=== PATIENT | male | born 1930 | race Hispanic/Latino ===

== ENCOUNTER 2017-12-05 10:38 | Emergency (ER) | payer OTHER ==
--- OUTSIDE RECORDS SUMMARY | 2017-12-05 10:42 | XMS REPORT | Clinical Summary ---
:1930 Author Organization [facility] Address [address] [place] [address] Care Team Providers Name Role Phone Asked, No Pcp Primary Care Provider Unavailable Allergies Active Allergy Reactions Severity Noted Date Comments Ibuprofen Other (See Comments) Medium 03/31/2016 Agitation. Patient states "I lose my mind". Hydrocodone-Acetaminoph 05/12/2017 Pt's daughter en reported "he acts crazy." Current Medications Prescription Sig. Disp. Refills Start Date End Date Status pantoprazole Take 40 mg by Active (PROTONIX) 40 MG mouth daily. EC tablet tamsulosin Take 0.4 mg by Active (FLOMAX) 0.4 mg mouth nightly. capsule,extended release 24hr potassium chloride Take 10 mEq by Active (K-DUR,KLOR-CON) mouth daily. 10 MEQ CR tablet simvastatin Take 40 mg by Active (ZOCOR) 40 MG mouth daily. tablet PARoxetine (PAXIL) Take 30 mg by Active 30 MG tablet mouth daily. warfarin Take 4 mg by Active (COUMADIN) 4 MG mouth. Once tablet daily on Sunday, Sunday, Sunday, , and Sunday warfarin Take 2 mg by Active (COUMADIN) 2 MG mouth. Once tablet daily on Sunday and Sunday travoprost Administer 1 Active (TRAVATAN Z) 0.004 drop to both % eyes nightly. furosemide (LASIX) Take 40 mg by Discontinued 20 MG tablet mouth every 7 morning. furosemide (LASIX) Take 20 mg by Discontinued 20 MG tablet mouth every 7 evening. ALPRAZolam (XANAX) Take 1 mg by Discontinued 0.5 MG tablet mouth nightly as 7 needed for anxiety or sleep. benazepril Take 20 mg by Discontinued (LOTENSIN) 40 MG mouth daily as 7 tablet needed (when BP > 130/80). melatonin 10 mg Take 1 capsule 30 capsule 0 05/13/2017 capsule (10 mg total) by 7 mouth nightly as needed (insomnia) for up to 30 days. 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 Dehydration 03/31/2016 Encounters Date Type Specialty Care Team Description 05/12/2017 - Emergency General Internal [facility] Acute kidney injury ( Primary Dx); 05/13/2017 Medicine MD Marielle Labile blood pressure; Darcy Prado Hypotension, unspecified hypotension type; MD Panchito Subtherapeutic international normalized ratio (INR); Dehydration; Hypotension due to drugs after 12/04/2016 Social History Tobacco Use Types Packs/Day Years Used Date Never Smoker Alcohol Use Drinks/Week oz/Week Comments No Sex Assigned at Date Recorded Not on file Last Filed Vital Signs Vital Sign Reading Time Taken Blood Pressure 163/85 05/13/2017 11:54 AM [employer]AUGE [employer] APPRENTICE Pulse 25 05/13/2017 11:54 AM GAUGE [employer] APPRENTICE Temperature 36.3 C (97.4 F) 05/13/2017 11:54 AM GAUGE MAKER APPRENTICE Respiratory Rate 17 05/13/2017 11:54 AM GAUGE MAKER APPRENTICE Oxygen Saturation 96% 05/13/2017 11:54 AM GAUGE MAKER APPRENTICE Inhaled Oxygen Concentration - - Weight 85.5 kg (188 lb 9.6 oz) 05/12/2017 8:02 PM GAUGE MAKER APPRENTICE Height 160 cm (5' 3") 05/12/2017 8:15 PM GAUGE [employer]KER APPRENTICE Body Mass Index 33.41 05/12/2017 8:02 PM GAUGE [employer] APPRENTICE Plan of Treatment Health Maintenance Due Date Last Done Comments SHINGRIX VACCINE (#1) 1979 ZOSTER VACCINE 1989 PNEUMOCOCCAL POLYSACCHARIDE VACCINE AGE 65 AND OVER 1994 PNEUMOCOCCAL-13 1994 INFLUENZA VACCINE 01/23/2018 Implants Implanted Type Area Materials Analyst Device Identifier Expiration Date Model / Serial / Lot Pacemaker Pacemaker Results Estimated GFR (05/13/2017 4:15 AM)Only the most recent of2 resultswithin the time period is included. Component Value Ref Range GFR Non Af Amer 41 (A) mL/min/1.73 m2 GFR Af Amer 50 (A) mL/min/1.73 m2 Comment: Chronic kidney disease: <60 mL/min/1.73m2 Kidney failure: <15 mL/min/1.73m2 The estimated GFR is calculated from the IDMS-traceable Modification of Diet in Renal Disease Equation. The accuracy of the calculation is poor when the creatinine is normal. Calculated values >90 mL/min/1.73m2 are not reported. This equation has not been validated in children (<18 years), women, the elderly (>70 years), or ethnic groups other than Caucasians and Americans. Specimen Performing Laboratory Plasma specimen [facility] DEPARTMENT OF PATHOLOGY AND GENOMIC MEDICINE [address] [place] [id number] CBC with platelet and differential (05/13/2017 4:15 AM)Only the most recent of2 resultswithin the time period is included. Component Value Ref Range WBC 6.58 4.50 - 11.00 k/uL RBC 4.64 4.40 - 6.00 m/uL HGB 13.2 (L) 14.0 - 18.0 g/dL HCT 41.9 41.0 - 51.0 % MCV 90.3 82.0 - 100.0 fL MCH 28.4 27.0 - 34.0 pg MCHC 31.5 31.0 - 37.0 g/dL RDW - SD 50.4 37.0 - 55.0 fL MPV 11.9 8.8 - 13.2 fL Platelet count 151 150 - 400 k/uL Nucleated RBC 0.00 /100 WBC Neutrophils 49.7 39.0 - 69.0 % Lymphocytes 38.3 25.0 - 45.0 % Monocytes 8.5 0.0 - 10.0 % Eosinophils 2.6 0.0 - 5.0 % Basophils 0.6 0.0 - 1.0 % Immature granulocytes 0.3Comment: "Immature granulocytes" 0.0 - 1.0 % (promyelocytes, myelocytes, metamyelocytes) Specimen Performing Laboratory Blood [facility] DEPARTMENT OF PATHOLOGY AND [facility] MEDICINE [address] [place] [address] Phosphorus level (05/13/2017 4:15 AM) Component Value Ref Range Phosphorus 3.0 2.4 - 4.5 mg/dL Specimen Performing Laboratory Plasma specimen [facility] DEPARTMENT OF PATHOLOGY AND GENOMIC MEDICINE [address] [place] [address] Magnesium level (05/13/2017 4:15 AM) Component Value Ref Range Magnesium 2.2 1.6 - 2.4 mg/dL Specimen Performing Laboratory Plasma specimen [facility] DEPARTMENT PATHOLOGY [address] [address] Basic metabolic panel (05/13/2017 4:15 AM) Component Value Ref Range Sodium 144 135 - 148 mEq/L Potassium 4.3 3.5 - 5.0 mEq/L Chloride 105 98 - 112 mEq/L CO2 26 24 - 31 mEq/L Anion gap 13 7 - 15 mEq/L Comment: Starting from September , anion gap calculation no longer incorporates potassium. Please note the change. BUN 25 (H) 8 - 23 mg/dL Creatinine 1.6 (H) 0.7 - 1.2 mg/dL Glucose 91 65 - 99 mg/dL Calcium 8.4 (L) 8.8 - 10.2 mg/dL Specimen Performing Laboratory Plasma specimen [facility] DEPARTMENT PATHOLOGY [address] [address] Sodium level, urine, random (05/12/2017 9:23 PM) Component Value Ref Range Sodium, urine, random 79 mEq/L Specimen Performing Laboratory Urine [facility] DEPARTMENT PATHOLOGY [address] [address] Protein, urine, random (05/12/2017 9:23 PM) Component Value Ref Range Protein, urine random <4 mg/dL Specimen Performing Laboratory Urine [facility] DEPARTMENT OF PATHOLOGY [address] [address] Creatinine level, urine, random (05/12/2017 9:23 PM) Component Value Ref Range Creatinine, urine, random 75 mg/dL Specimen Performing Laboratory Urine [facility] DEPARTMENT PATHOLOGY [address] [address] Troponin (05/12/2017 4:30 PM)Only the most recent of2 resultswithin the time period is included. Component Value Ref Range Troponin <0.30 0.00 - 0.30 ng/mL Comment: 0.30 - 1.49 ng/mlMay indicate increased risk of acute coronary syndrome. >=1.5 ng/mlConsistent with acute myocardial infarction. The diagnostic value of a single normal or non-diagnostic result is questionable.Serial samples at 2-6 hour intervals are required to rule out acute myocardial injury. Specimen Performing Laboratory Plasma specimen [facility] DEPARTMENT OF PATHOLOGY AND GENOMIC MEDICINE [address] [place] [phone] Urinalysis screen and microscopy, with reflex to culture (05/12/2017 12:25 PM) Component Value Ref Range Specimen site Clean catch Color, UA Yellow Appearance, UA Clear Specific gravity, UA 1.015 1.001 - 1.035 pH, UA 5.0 5.0 - 8.5 Protein, UA Negative Negative Glucose, UA Negative Negative Ketones, UA Negative Negative Bilirubin, UA Negative Negative Blood, UA Negative Negative Nitrite, UA Negative Negative Urobilinogen, UA <2.0 <2.0 Leukocyte esterase, UA Negative Negative Epithelial cells, UA 1 /HPF WBC, UA <1 0 - 1 /HPF RBC, UA 1 0 - 1 /HPF Bacteria, UA Few None seen Yeast, UA None seen Yeast with pseudohyphae, UA None seen Hyaline casts, UA >20 (A) /LPF Specimen Performing Laboratory Urine [facility] DEPARTMENT OF PATHOLOGY AND GENOMIC MEDICINE [address] [place] [address] Urine culture (05/12/2017 12:25 PM) Component Value Ref Range Urine culture SEE COMMENTComment: Bacteriuria screen negative. Specimen Performing Laboratory [facility] DEPARTMENT OF PATHOLOGY AND GENOMIC MEDICINE [address] [place] [address] XR Chest 2 Vw (05/12/2017 12:13 PM) Specimen Performing Laboratory [facility] [address] [place] [address] Narrative EXAMINATION:XR CHEST 2 VW CLINICAL HISTORY:syncope COMPARISON:To previous examination 03/09/2015 IMPRESSION: Changes related midline sternotomy are noted. Transvenous pacemaker is present. Slight costophrenic angle blunting is noted involving the left side. The lungs otherwise are clear. [facility][id number] Procedure Note Interface, Radiology Results Incoming - 05/12/2017 12:18 PM GAUGE MAKER APPRENTICE EXAMINATION: XR CHEST 2 VW CLINICAL HISTORY: syncope COMPARISON: To previous examination 03/09/2015 IMPRESSION: Changes related midline sternotomy are noted. Transvenous pacemaker is present. Slight costophrenic angle blunting is noted involving the left side. The lungs otherwise are clear. [facility]-[id number] Partial thromboplastin time, activated (05/12/2017 12:03 PM) Component Value Ref Range PTT 30.4 23.0 - 36.0 sec Comment: PTT therapeutic range for unfractionated heparin is 61.0-112.0 seconds which corresponds to Anti-Xa 0.3-0.7 U/ml. Specimen Performing Laboratory Blood [facility] DEPARTMENT OF PATHOLOGY AND [facility] [address] [place] [address] Prothrombin time with INR (05/12/2017 12:03 PM) Component Value Ref Range Prothrombin time 16.7 (H) 12.0 - 15.0 sec INR 1.3 Comment: The International Normalized Ratio (INR) is a therapeutic monitoring tool for patients who are stable on oral anticoagulant therapy. An INR of 2.0-3.0 is suggested for deep vein thrombosis/pulmonary embolism. Specimen Performing Laboratory Blood [facility] DEPARTMENT OF PATHOLOGY AND [address] [address] B natriuretic peptide (05/12/2017 12:03 PM) Component Value Ref Range BNP 196 (H) 0 - 100 pg/mL Specimen Performing Laboratory Blood [facility] OF PATHOLOGY AND [address] [address] Comprehensive metabolic panel (05/12/2017 12:03 PM) Component Value Ref Range Sodium 141 135 - 148 mEq/L Potassium 4.7 3.5 - 5.0 mEq/L Chloride 103 98 - 112 mEq/L CO2 27 24 - 31 mEq/L Anion gap 11 7 - 15 mEq/L Comment: Starting from September , anion gap calculation no longer incorporates potassium. Please note the change. BUN 25 (H) 8 - 23 mg/dL Creatinine 1.9 (H) 0.7 - 1.2 mg/dL Glucose 112 (H) 65 - 99 mg/dL Calcium 8.6 (L) 8.8 - 10.2 mg/dL Protein 6.0 (L) 6.3 - 8.3 g/dL Comment: 4.6-7.0 g/dL 1 week 4.4-7.6 g/dL 7 months-1year5.1-7.3 g/dL 1-2 years5.6-7.5 g/dL >3 years6.0-8.0 g/dL 18-150 6.3-8.3 g/dL Albumin 3.4 (L) 3.5 - 5.0 g/dL A/G ratio 1.3 0.7 - 3.8 Alkaline phosphatase 54 40 - 129 U/L AST 24 10 - 50 U/L ALT 16 5 - 50 U/L Total bilirubin 0.5 0.0 - 1.2 mg/dL Specimen Performing Laboratory Plasma specimen [facility] DEPARTMENT OF PATHOLOGY AND GENOMIC MEDICINE [address] [place] [address] ECG 12 lead (05/12/2017 12:00 PM) Component Value Ref Range Ventricular rate 73 Atrial rate 73 QRSD interval 170 QT interval 446 QTC interval 491 QRS axis 1 -86 T wave axis 102 EKG impression AV sequential or dual chamber electronic pacemaker-In automated comparison with ECG of 31-MAR-2016 14:57,-No significant change was found- Specimen Performing Laboratory [facility] MUSE [address] [place] [address] after 12/04/2016 Insurance Payer Benefit Plan / Group Subscriber ID Type Phone Address [facility] O Home: [address] [phone] [place], [place] [phone]
[2017-12-05 11:30] LABS: Absolute Lymphocytes (CBC) 1.6 K/uL (0.7-4.9); Absolute Monocytes 0.4 K/uL (0.1-1.3); Absolute Neutrophil 4.7 K/uL (1.8-8.0); Basophils % 0.4 % (0-1.3); Eosinophils % 1.2 % (0-4.4); Hematocrit 44.9 % (39.6-49.0); Lymphocytes % 23.1 % (15.3-44.8); MCH 28.7 pg (27.0-35.0); MCV 89.4 fL (80-100); MPV 8.6 fL (7.6-11.3); Monocytes % 5.5 % (3.3-12.3); RBC Red Blood Cell Count 5.02 M/uL (4.33-5.43)
[2017-12-05 11:45] LABS: Potassium 3.9 mEq/L (3.6-5.0)
[2017-12-05] MEDS ORDERED: NA CHLORIDE 0.9% 500 ML ONE (11:45)
[2017-12-05 11:51] LABS: Albumin 3.6 g/dL (3.2-5.5); Bilirubin Direct 0.1 mg/dL (0-0.2); Bilirubin Total 0.8 mg/dL (0.3-1.2); Protein, Total 6.1 g/dL (6.0-8.3)
--- NOTE | 2017-12-05 13:51 | ER ---
Nurse's Notes [facility] Name: Huy Anaya Age: 87 yrs Sex: Male : 1930 Arrival Date: 12/05/2017 Time: 10:42 Bed 5 Private MD: Nabeel Barragan E Diagnosis: Weakness;fatigue;Diarrhea, unspecified Presentation: 12/05 10:53 Presenting complaint: Patient states: Nausea and diarrhea for 5 days. Transition of care: patient was not received from another setting of care. Onset of symptoms was November 30, 2017. Risk Assessment: Do you want to hurt yourself or someone else? Patient reports no desire to harm self or others. Care prior to arrival: None. 10:53 Method Of Arrival: Ambulatory aj 10:53 Acuity: MARY 4 aj 11:10 Initial Sepsis Screen: Does the patient meet any 2 criteria? No. Patient's initial hj sepsis screen is negative. Does the patient have a suspected source of infection? No. Patient's initial sepsis screen is negative. Triage Assessment: 10:55 General: Appears in no apparent distress. comfortable, Behavior is calm, cooperative, aj appropriate for age. Pain: Denies pain. Neuro: Level of Consciousness is awake, alert, obeys commands, Oriented to person, place, time, situation, Appropriate for age. Neuro: Reports dizziness. Respiratory: Airway is patent Respiratory effort is even, unlabored, Respiratory pattern is regular, symmetrical. GI: Reports diarrhea, nausea. Derm: Skin is intact, is healthy with good turgor, Skin is pink, warm \T\ dry. normal. Historical: - Allergies: 10:55 ACETAMINOPHEN; aj 10:55 hydrocodone bitartrate (bulk); aj 10:55 Iodine; aj - Home Meds: 10:56 Alprazolam Oral [Active]; aj - PMHx: 10:55 Anxiety; Depression; enlarged prostate; GERD; Hypertension; Myocardial infarction; aj - PSHx: 10:55 Heart Surgery; pacemaker; aj - Immunization history:: Adult Immunizations up to date. - Social history:: Smoking status: Patient/guardian denies using tobacco. - Ebola Screening: : Patient negative for fever greater than or equal to 101.5 degrees Fahrenheit, and additional compatible Ebola Virus Disease symptoms Patient denies exposure to infectious person Patient denies travel to an Ebola-affected area in the 21 days before illness onset No symptoms or risks identified at this time. Screenin:57 Abuse screen: Denies threats or abuse. Denies injuries from another. Nutritional hj screening: No deficits noted. Tuberculosis screening: No symptoms or risk factors identified. Fall Risk None identified. Assessment: 11:11 General: Appears in no apparent distress. uncomfortable, Behavior is calm, cooperative, hj appropriate for age. Pain: Denies pain. Neuro: Level of Consciousness is awake, alert, obeys commands, Oriented to person, place, time, situation, Appropriate for age. Cardiovascular: Capillary refill < 3 seconds Patient's skin is warm and dry. Cardiovascular: Reports nausea, Denies chest pain. Respiratory: Airway is patent Respiratory effort is even, unlabored, Respiratory pattern is regular, symmetrical. GI: Reports nausea, vomiting. GI: Abdomen is round Bowel sounds present X 4 quads. Abd is soft and non tender. : No signs and/or symptoms were reported regarding the genitourinary system. EENT: No signs and/or symptoms were reported regarding the EENT system. Derm: No signs and/or symptoms reported regarding the dermatologic system. Musculoskeletal: No signs and/or symptoms reported regarding the musculoskeletal system. 12:12 Reassessment: Patient and/or family updated on plan of care and expected duration. Pain hj level reassessed. Patient is alert, oriented x 3, equal unlabored respirations, skin warm/dry/pink. daughter in law in room; Patient states feeling better. 13:19 Reassessment: Patient and/or family updated on plan of care and expected duration. Pain hj level reassessed. Patient is alert, oriented x 3, equal unlabored respirations, skin warm/dry/pink. Patient states feeling better. Patient states symptoms have improved. Vital Signs: 10:55 BP 124 / 83; Pulse 83; Resp 16; Temp 98.1; Pulse Ox 95% on R/A; Weight 88.45 kg; Height aj 5 ft. 2 in. (157.48 cm); 11:45 BP 123 / 78; Pulse 70; Resp 18; Pulse Ox 100% on R/A; hj 12:12 BP 124 / 80; Pulse 72; Resp 18; Pulse Ox 100% on R/A; hj 13:20 BP 137 / 84; Pulse 70; Resp 18; Pulse Ox 100% on R/A; hj 14:02 BP 130 / 75; Pulse 71; Resp 18; Pulse Ox 100% on R/A; hj 10:55 Body Mass Index 35.67 (88.45 kg, 157.48 cm) ED Course: 10:42 Patient arrived in ED. jb7 10:42 Nabeel Barragan MD is Private Physician. jb7 10:54 Triage completed. aj 10:56 César Fajardo RN is Primary Nurse. hj 10:56 Arm band placed on right wrist. Patient placed in an exam room. aj 10:57 Heriberto Yates MD is Attending Physician. kdr 11:10 Patient has correct armband on for positive identification. Placed in gown. Bed in low hj position. Call light in reach. Side rails up X 1. Adult w/ patient. 11:10 Initial lab(s) drawn, by me. Inserted saline lock: 22 gauge in left antecubital area, hj using aseptic technique. Blood collected. 11:27 Initial lab(s) drawn, by ED staff, sent to lab. 3 13:49 Nabeel Barragan MD is Referral Physician. kdr 14:01 No provider procedures requiring assistance completed. IV discontinued, intact, hj bleeding controlled, No redness/swelling at site. Pressure dressing applied. Administered Medications: 11:49 Drug: NS 0.9% 500 ml Route: IV; Rate: bolus; Site: left antecubital; hb 12:19 Follow up: IV Status: Completed infusion; IV Intake: 1000ml hj Intake: 12:19 IV: 1000ml; Total: 1000ml. Outcome: 13:50 Discharge ordered by . kdr 14:01 Discharged to home ambulatory, with family. hj 14:01 Condition: stable 14:01 Discharge instructions given to patient, family, Instructed on discharge instructions, follow up and referral plans. medication usage, Demonstrated understanding of instructions, follow-up care, medications, Prescriptions given X 2. 14:03 Patient left the ED. Signatures: Brandi Manriquez RN RN aj Rittger, Kevin, MD MD kdr Joaquin, Henry, RN RN hj Baxter, Heather, RN RN Nitish Monzon jb7 Haley Ruiz 3
--- NOTE | 2017-12-05 13:51 | EDPHYS ---
Physician Documentation [facility] Name: Huy Anaya Age: 87 yrs Sex: Male : 1930 Arrival Date: 12/05/2017 Time: 10:42 Bed 5 Private MD: Nabeel Barragan E ED Physician Heriberto Yates HPI: 12/05 15:21 This 87 yrs old Male presents to ER via Ambulatory with complaints of kdr Nausea/Vomiting/Diarrhea. 15:21 The patient presents to the emergency department with nausea, that is mild, vomiting, kdr that is intermittent, diarrhea, that is intermittent. Onset: The symptoms/episode began/occurred gradually, 4 day(s) ago. Possible causes: unknown. The symptoms are aggravated by nothing. The symptoms are alleviated by nothing. Associated signs and symptoms: The patient has no apparent associated signs or symptoms. Severity of symptoms: At their worst the symptoms were mild in the emergency department the symptoms have improved mildly. The patient has not experienced similar symptoms in the past. The patient has not recently seen a physician. Historical: - Allergies: 10:55 ACETAMINOPHEN; aj 10:55 hydrocodone bitartrate (bulk); aj 10:55 Iodine; aj - Home Meds: 10:56 Alprazolam Oral [Active]; aj - PMHx: 10:55 Anxiety; Depression; enlarged prostate; GERD; Hypertension; Myocardial infarction; aj - PSHx: 10:55 Heart Surgery; pacemaker; aj - Immunization history:: Adult Immunizations up to date. - Social history:: Smoking status: Patient/guardian denies using tobacco. - Ebola Screening: : Patient negative for fever greater than or equal to 101.5 degrees Fahrenheit, and additional compatible Ebola Virus Disease symptoms Patient denies exposure to infectious person Patient denies travel to an Ebola-affected area in the 21 days before illness onset No symptoms or risks identified at this time. ROS: 15:21 Constitutional: Negative for fever, chills, and weight loss, Eyes: Negative for injury, kdr pain, redness, and discharge, Neck: Negative for injury, pain, and swelling, Cardiovascular: Negative for chest pain, palpitations, and edema, Respiratory: Negative for shortness of breath, cough, wheezing, and pleuritic chest pain, Back: Negative for injury and pain, : Negative for injury, bleeding, discharge, and swelling, MS/Extremity: Negative for injury and deformity, Skin: Negative for injury, rash, and discoloration, Neuro: Negative for headache, weakness, numbness, tingling, and seizure activity. Psych: Negative for depression, anxiety, suicide ideation, homicidal ideation, and hallucinations, Allergy/Immunology: Negative for hives, rash, and allergies, Endocrine: Negative for neck swelling, polydipsia, polyuria, polyphagia, and marked weight changes, Hematologic/Lymphatic: Negative for swollen nodes, abnormal bleeding, and unusual bruising. 15:21 Abdomen/GI: Positive for nausea, vomiting, and diarrhea, Negative for constipation, abdominal distension, anorexia, dysphagia, hematemesis, black/tarry stool, rectal pain, rectal bleeding. Exam: 15:21 Constitutional: This is a well developed, well nourished patient who is awake, alert, kdr and in no acute distress. Head/Face: Normocephalic, atraumatic. Eyes: Pupils equal round and reactive to light, extra-ocular motions intact. Lids and lashes normal. Conjunctiva and sclera are non-icteric and not injected. Cornea within normal limits. Periorbital areas with no swelling, redness, or edema. Neck: Trachea midline, no thyromegaly or masses palpated, and no cervical lymphadenopathy. Supple, full range of motion without nuchal rigidity, or vertebral point tenderness. No Meningismus. Chest/axilla: Normal chest wall appearance and motion. Nontender with no deformity. No lesions are appreciated. Cardiovascular: Regular rate and rhythm with a normal S1 and S2. No gallops, murmurs, or rubs. Normal PMI, no JVD. No pulse deficits. Respiratory: Lungs have equal breath sounds bilaterally, clear to auscultation and percussion. No rales, rhonchi or wheezes noted. No increased work of breathing, no retractions or nasal flaring. Back: No spinal tenderness. No costovertebral tenderness. Full range of motion. Skin: Warm, dry with normal turgor. Normal color with no rashes, no lesions, and no evidence of cellulitis. MS/ Extremity: Pulses equal, no cyanosis. Neurovascular intact. Full, normal range of motion. Neuro: Awake and alert, GCS 15, oriented to person, place, time, and situation. Cranial nerves II-XII grossly intact. Motor strength 5/5 in all extremities. Sensory grossly intact. Cerebellar exam normal. Normal gait. Psych: Awake, alert, with orientation to person, place and time. Behavior, mood, and affect are within normal limits. 15:21 Abdomen/GI: Soft, non-tender, with normal bowel sounds. No distension or tympany. No guarding or rebound. No evidence of tenderness throughout. Vital Signs: 10:55 BP 124 / 83; Pulse 83; Resp 16; Temp 98.1; Pulse Ox 95% on R/A; Weight 88.45 kg; Height aj 5 ft. 2 in. (157.48 cm); 11:45 BP 123 / 78; Pulse 70; Resp 18; Pulse Ox 100% on R/A; hj 12:12 BP 124 / 80; Pulse 72; Resp 18; Pulse Ox 100% on R/A; hj 13:20 BP 137 / 84; Pulse 70; Resp 18; Pulse Ox 100% on R/A; hj 14:02 BP 130 / 75; Pulse 71; Resp 18; Pulse Ox 100% on R/A; hj 10:55 Body Mass Index 35.67 (88.45 kg, 157.48 cm) aj MDM: 13:50 Patient medically screened. kdr 15:21 Data reviewed: vital signs, nurses notes. Counseling: I had a detailed discussion with kdr the patient and/or guardian regarding: the historical points, exam findings, and any diagnostic results supporting the discharge/admit diagnosis, lab results, radiology results, the need for outpatient follow up. 12/05 11:19 Order name: Amylase, Serum; Complete Time: 12:17 12/05 11:19 Order name: Basic Metabolic Panel; Complete Time: 12:17 12/05 11:19 Order name: CBC with Diff; Complete Time: 11:34 12/05 11:19 Order name: Creatinine for Radiology; Complete Time: 12:17 12/05 11:19 Order name: Hepatic Function; Complete Time: 12:17 12/05 11:19 Order name: Lipase; Complete Time: 12:17 12/05 11:19 Order name: IV Saline Lock; Complete Time: 11:23 12/05 11:19 Order name: Labs collected and sent; Complete Time: 11:23 Administered Medications: 11:49 Drug: NS 0.9% 500 ml Route: IV; Rate: bolus; Site: left antecubital; hb 12:19 Follow up: IV Status: Completed infusion; IV Intake: 1000ml hj Disposition: 12/05/17 13:50 Discharged to Home. Impression: Weakness, fatigue, Diarrhea, unspecified. - Condition is Stable. - Discharge Instructions: Fatigue, Diarrhea, [id number], Weakness, [id number]. - Prescriptions for Zofran 4 mg Oral Tablet - take 1 tablet by ORAL route every 12 hours As needed; 6 tablet. Tramadol 50 mg Oral Tablet - take 1 tablet by ORAL route every 8 hours as needed; 12 tablet. - Medication Reconciliation Form, Thank You Letter, Antibiotic Education, Prescription Opioid Use form. - Follow up: Nabeel Barragan MD; When: 1 - 2 days; Reason: If symptoms return, Further diagnostic work-up, Recheck today's complaints, Continuance of care, Re-evaluation by your physician. - Problem is new. - Symptoms have improved. Signatures: Dispatcher [employer] EDPR Brandi Manriquez RN RN Heriberto Hidalgo MD MD [facility] César Fajardo RN RN Makayla Phillips RN RN Corrections: (The following items were deleted from the chart) 14:03 13:50 12/05/2017 13:50 Discharged to Home. Impression: Weakness; fatigue; Diarrhea, hj unspecified. Condition is Stable. Forms are Medication Reconciliation Form, Thank You Letter, Antibiotic Education, Prescription Opioid Use. Follow up: Nabeel Barragan; When: 1 - 2 days; Reason: If symptoms return, Further diagnostic work-up, Recheck today's complaints, Continuance of care, Re-evaluation by your physician. Problem is new. Symptoms have improved. kdr
[2017-12-05 14:13] VITALS: TEMP 98.1
[2017-12-05 14:14] VITALS: O2SAT 100
[2017-12-05 14:17] VITALS: BP 130/75
== END 2017-12-05 14:03 | disposition home or self-care (01) ==
LOC: ER 10:38
DX: R11.2 Nausea with vomiting, unspecified (principal); R19.7 Diarrhea, unspecified; R53.83 Other fatigue; F32.9 Major depressive disorder, single episode, unspecified; N40.0 Benign prostatic hyperplasia without lower urinary tract symptoms; K21.9 Gastro-esophageal reflux disease without esophagitis; I10 Essential (primary) hypertension; I25.2 Old myocardial infarction; Z95.0 Presence of cardiac pacemaker
CPT/HCPCS: 36415; 80048; 80076; 82150; 83690; 85025; 99284

== ENCOUNTER 2018-01-16 11:55 | Emergency (ER) | payer OTHER ==
--- OUTSIDE RECORDS SUMMARY | 2018-01-16 11:57 | XMS REPORT | Clinical Summary ---
:1930 Author Organization [facility] Address [address] [place] [address] Care Team Providers Name Role Phone Asked, [...] Description 05/12/2017 - Emergency General Internal [facility] Acute kidney injury ( Primary Dx); 05/13/2017 Medicine MD Marielle Labile blood pressure; Darcy Prado Hypotension, unspecified hypotension type; MD Panchito Subtherapeutic international normalized ratio (INR); Dehydration; Hypotension due to drugs after 01/15/2017 Social History Tobacco Use Types Packs/Day Years Used Date Never Smoker Alcohol Use Drinks/Week oz/Week Comments No Sex Assigned at Date Recorded Not on file Last Filed Vital Signs Vital Sign Reading Time Taken Blood Pressure 163/85 05/13/2017 11:54 AM [facility] Pulse 25 05/13/2017 11:54 AM [facility] Temperature 36.3 C (97.4 F) 05/13/2017 11:54 AM [facility] Respiratory Rate 17 05/13/2017 11:54 AM [facility] Oxygen Saturation 96% 05/13/2017 11:54 AM [facility] Inhaled Oxygen Concentration - - Weight 85.5 kg (188 lb 9.6 oz) 05/12/2017 8:02 PM [facility] Height 160 cm (5' 3") 05/12/2017 8:15 PM [facility] Body Mass Index 33.41 05/12/2017 8:02 PM [facility] Plan of Treatment Health Maintenance Due Date Last Done Comments SHINGRIX VACCINE (#1) 1979 ZOSTER VACCINE 1989 PNEUMOCOCCAL POLYSACCHARIDE VACCINE AGE 65 AND OVER 1994 PNEUMOCOCCAL-13 1994 INFLUENZA VACCINE 01/23/2018 Implants Implanted Type Area Histology Assistant Device Identifier Expiration Date Model / Serial / Lot Pacemaker Pacemaker Procedures Procedure Name Priority Date/Time Associated Comments Diagnosis ESTIMATED GFR Routine 05/13/2017 4:15 Results for this AM [facility] procedure are in the results section. PHOSPHORUS LEVEL Routine 05/13/2017 4:15 Results for this AM [facility] procedure are in the results section. MAGNESIUM LEVEL Routine 05/13/2017 4:15 Results for this AM [facility] procedure are in the results section. HC COMPLETE BLD COUNT Routine 05/13/2017 4:15 Results for this W/AUTO DIFF AM [facility] procedure are in the results section. BASIC METABOLIC PANEL Routine 05/13/2017 4:15 Results for this AM [facility] procedure are in the results section. SODIUM LEVEL, URINE, Routine 05/12/2017 9:23 Results for this RANDOM PM [facility] procedure are in the results section. CREATININE LEVEL, Routine 05/12/2017 9:23 Results for this URINE, RANDOM PM [facility] procedure are in the results section. PROTEIN, URINE, RANDOM Routine 05/12/2017 9:23 Results for this PM [facility] procedure are in the results section. TROPONIN Timed 05/12/2017 4:30 Results for this PM [facility] procedure are in the results section. URINALYSIS SCREEN AND Routine 05/12/2017 12:25 Results for this MICROSCOPY, WITH REFLEX PM [facility] procedure are in TO CULTURE the results section. URINE CULTURE Routine 05/12/2017 12:25 Results for this PM [facility] procedure are in the results section. XR CHEST 2 VW STAT 05/12/2017 12:13 Results for this PM [facility] procedure are in the results section. ESTIMATED GFR STAT 05/12/2017 12:03 Results for this PM [facility] procedure are in the results section. B NATRIURETIC PEPTIDE STAT 05/12/2017 12:03 Results for this PM [facility] procedure are in the results section. TROPONIN STAT 05/12/2017 12:03 Results for this PM [facility] procedure are in the results section. COMPREHENSIVE METABOLIC STAT 05/12/2017 12:03 Results for this PANEL PM [facility] procedure are in the results section. PARTIAL THROMBOPLASTIN STAT 05/12/2017 12:03 Results for this TIME (PTT) PM [facility] procedure are in the results section. PROTHROMBIN TIME WITH STAT 05/12/2017 12:03 Results for this INR PM [facility] procedure are in the results section. HC COMPLETE BLD COUNT STAT 05/12/2017 12:03 Results for this W/AUTO DIFF PM [facility] procedure are in the results section. ECG 12-LEAD STAT 05/12/2017 12:00 Results for this PM [facility] procedure are in the results section. after 01/15/2017 Results Estimated GFR (05/13/2017 4:15 AM)Only the most recent of2 resultswithin the time period is included. GFR Non Af Amer 41 (A) mL/min/1.73 m2 [facility] DEPARTMENT OF PATHOLOGY AND GENOMIC MEDICINE GFR Af Amer 50 (A) mL/min/1.73 m2 [facility] DEPARTMENT OF Comment: PATHOLOGY AND GENOMIC Chronic kidney disease: <60 mL/min/1.73m2 MEDICINE Kidney failure: <15 mL/min/1.73m2 The estimated GFR is calculated from the IDMS-traceable Modification of Diet in Renal Disease Equation. The accuracy of the calculation is poor when the creatinine is normal. Calculated values >90 mL/min/1.73m2 are not reported. This equation has not been validated in children (<18 years), women, the elderly (>70 years), or ethnic groups other than Caucasians and Americans. Specimen Plasma specimen Performing Organization Address City/State/Zipcode Phone Number [facility] DEPARTMENT OF PATHOLOGY AND [address] [place] [address] Interleukin Genetics [facility] CBC with platelet and differential (05/13/2017 4:15 AM)Only the most recent of2 resultswithin the time period is included. WBC 6.58 4.50 - 11.00 k/uL [facility] DEPARTMENT OF PATHOLOGY AND GENOMIC MEDICINE RBC 4.64 4.40 - 6.00 m/uL [facility] DEPARTMENT OF PATHOLOGY AND GENOMIC MEDICINE HGB 13.2 (L) 14.0 - 18.0 g/dL [facility] DEPARTMENT OF PATHOLOGY AND GENOMIC MEDICINE HCT 41.9 41.0 - 51.0 % [facility] DEPARTMENT OF PATHOLOGY AND GENOMIC MEDICINE MCV 90.3 82.0 - 100.0 fL [facility] DEPARTMENT OF PATHOLOGY AND GENOMIC MEDICINE MCH 28.4 27.0 - 34.0 pg [facility] DEPARTMENT OF PATHOLOGY AND GENOMIC MEDICINE MCHC 31.5 31.0 - 37.0 g/dL [facility] DEPARTMENT OF PATHOLOGY AND GENOMIC MEDICINE RDW - SD 50.4 37.0 - 55.0 fL [facility] DEPARTMENT OF PATHOLOGY AND GENOMIC MEDICINE MPV 11.9 8.8 - 13.2 fL [facility] DEPARTMENT OF PATHOLOGY AND GENOMIC MEDICINE Platelet count 151 150 - 400 k/uL [facility] DEPARTMENT OF PATHOLOGY AND GENOMIC MEDICINE Nucleated RBC 0.00 /100 WBC [facility] DEPARTMENT OF PATHOLOGY AND GENOMIC MEDICINE Neutrophils 49.7 39.0 - 69.0 % [facility] DEPARTMENT OF PATHOLOGY AND GENOMIC MEDICINE Lymphocytes 38.3 25.0 - 45.0 % [facility] DEPARTMENT OF PATHOLOGY AND GENOMIC MEDICINE Monocytes 8.5 0.0 - 10.0 % [facility] DEPARTMENT OF PATHOLOGY AND GENOMIC MEDICINE Eosinophils 2.6 0.0 - 5.0 % [facility] DEPARTMENT OF PATHOLOGY AND GENOMIC MEDICINE Basophils 0.6 0.0 - 1.0 % [facility] DEPARTMENT OF PATHOLOGY AND GENOMIC MEDICINE Immature granulocytes 0.3Comment: 0.0 - 1.0 % [facility] DEPARTMENT OF "Immature PATHOLOGY AND GENOMIC granulocytes" MEDICINE (promyelocytes, myelocytes, metamyelocytes) Specimen Blood Performing Organization Address City/[facility] Phone Number [facility] DEPARTMENT OF PATHOLOGY AND [address] [place] [address] MEDICINE Phosphorus level (05/13/2017 4:15 AM) Phosphorus 3.0 2.4 - 4.5 mg/dL [facility] DEPARTMENT OF PATHOLOGY AND GENOMIC MEDICINE Specimen Plasma specimen Performing Organization Address [facility] Phone Number [facility] DEPARTMENT OF PATHOLOGY AND [address] [place] [address] MEDICINE Magnesium level (05/13/2017 4:15 AM) Magnesium 2.2 1.6 - 2.4 mg/dL [facility] DEPARTMENT OF PATHOLOGY AND GENOMIC MEDICINE Specimen Plasma specimen Performing Organization Address [facility] Phone Number [facility] DEPARTMENT OF PATHOLOGY AND [address] [place] [address] Basic metabolic panel (05/13/2017 4:15 AM) Sodium 144 135 - 148 mEq/L [facility] DEPARTMENT OF PATHOLOGY AND GENOMIC MEDICINE Potassium 4.3 3.5 - 5.0 mEq/L [facility] DEPARTMENT OF PATHOLOGY AND GENOMIC MEDICINE Chloride 105 98 - 112 mEq/L [facility] DEPARTMENT OF PATHOLOGY AND GENOMIC MEDICINE CO2 26 24 - 31 mEq/L [facility] DEPARTMENT OF PATHOLOGY AND GENOMIC MEDICINE Anion gap 13 7 - 15 mEq/L [facility] DEPARTMENT OF PATHOLOGY Comment: AND GENOMIC [facility] Starting from September , anion gap calculation no longer incorporates potassium. Please note the change. BUN 25 (H) 8 - 23 mg/dL [facility] DEPARTMENT OF PATHOLOGY AND GENOMIC MEDICINE Creatinine 1.6 (H) 0.7 - 1.2 mg/dL [facility] DEPARTMENT OF PATHOLOGY AND GENOMIC MEDICINE Glucose 91 65 - 99 mg/dL [facility] DEPARTMENT OF PATHOLOGY AND GENOMIC MEDICINE Calcium 8.4 (L) 8.8 - 10.2 mg/dL [facility] DEPARTMENT OF PATHOLOGY AND GENOMIC MEDICINE Specimen Plasma specimen Performing Organization Address City/[facility] Phone Number [facility] DEPARTMENT OF PATHOLOGY AND [address] [place] [address] GENOMIC [facility] Sodium level, urine, random (05/12/2017 9:23 PM) Sodium, urine, random 79 mEq/L [facility] DEPARTMENT OF PATHOLOGY AND GENOMIC MEDICINE Specimen Urine Performing Organization Address [facility] Phone Number [facility] DEPARTMENT OF PATHOLOGY AND [address] [place] [address] GENOMIC MEDICINE Protein, urine, random (05/12/2017 9:23 PM) Protein, urine random <4 mg/dL [facility] DEPARTMENT OF PATHOLOGY AND GENOMIC MEDICINE Specimen Urine Performing Organization Address [facility] Phone Number [facility] DEPARTMENT OF PATHOLOGY AND [address] [place] [address] Creatinine level, urine, random (05/12/2017 9:23 PM) Creatinine, urine, random 75 mg/dL [facility] DEPARTMENT OF PATHOLOGY AND GENOMIC MEDICINE Specimen Urine Performing Organization Address [facility] Phone Number [facility] DEPARTMENT OF PATHOLOGY AND [address] [place] [address] MEDICINE Troponin (05/12/2017 4:30 PM)Only the most recent of2 resultswithin the time period is included. Troponin <0.30 0.00 - 0.30 ng/mL [facility] DEPARTMENT OF PATHOLOGY Comment: AND GENOMIC MEDICINE 0.30 - 1.49 ng/mlMay indicate increased risk of acute coronary syndrome. >=1.5 ng/mlConsistent with acute myocardial infarction. The diagnostic value of a single normal or non-diagnostic result is questionable.Serial samples at 2-6 hour intervals are required to rule out acute myocardial injury. Specimen Plasma specimen Performing Organization Address [facility] Phone Number [facility] DEPARTMENT OF PATHOLOGY AND [address] [place] [address] GENOMIC MEDICINE Urinalysis screen and microscopy, with reflex to culture (05/12/2017 12:25 PM) Specimen site Clean catch [facility] DEPARTMENT OF PATHOLOGY AND GENOMIC MEDICINE Color, UA Yellow [facility] DEPARTMENT OF PATHOLOGY AND GENOMIC MEDICINE Appearance, UA Clear [facility] DEPARTMENT OF PATHOLOGY AND GENOMIC MEDICINE Specific gravity, UA 1.015 1.001 - 1.035 [facility] DEPARTMENT OF PATHOLOGY AND GENOMIC MEDICINE pH, UA 5.0 5.0 - 8.5 [facility] DEPARTMENT OF PATHOLOGY AND GENOMIC MEDICINE Protein, UA Negative Negative [facility] DEPARTMENT OF PATHOLOGY AND GENOMIC MEDICINE Glucose, UA Negative Negative [facility] DEPARTMENT OF PATHOLOGY AND GENOMIC MEDICINE Ketones, UA Negative Negative [facility] DEPARTMENT OF PATHOLOGY AND GENOMIC MEDICINE Bilirubin, UA Negative Negative [facility] DEPARTMENT OF PATHOLOGY AND GENOMIC MEDICINE Blood, UA Negative Negative [facility] DEPARTMENT OF PATHOLOGY AND GENOMIC MEDICINE Nitrite, UA Negative Negative [facility] DEPARTMENT OF PATHOLOGY AND GENOMIC MEDICINE Urobilinogen, UA <2.0 <2.0 [facility] DEPARTMENT OF PATHOLOGY AND GENOMIC MEDICINE Leukocyte esterase, UA Negative Negative [facility] DEPARTMENT OF PATHOLOGY AND GENOMIC MEDICINE Epithelial cells, UA 1 /HPF [facility] DEPARTMENT OF PATHOLOGY AND GENOMIC MEDICINE WBC, UA <1 0 - 1 /HPF [facility] DEPARTMENT OF PATHOLOGY AND GENOMIC MEDICINE RBC, UA 1 0 - 1 /HPF [facility] DEPARTMENT OF PATHOLOGY AND GENOMIC MEDICINE Bacteria, UA Few None seen [facility] DEPARTMENT OF PATHOLOGY AND GENOMIC MEDICINE Yeast, UA None seen [facility] DEPARTMENT OF PATHOLOGY AND GENOMIC MEDICINE Yeast with pseudohyphae, UA None seen [facility] DEPARTMENT OF PATHOLOGY AND GENOMIC MEDICINE Hyaline casts, UA >20 (A) /LPF [facility] DEPARTMENT OF PATHOLOGY AND GENOMIC MEDICINE Specimen Urine Performing Organization Address City/[facility]/Zipcode Phone Number [facility] DEPARTMENT OF PATHOLOGY AND [address] [place] [address] [facility] Urine culture (05/12/2017 12:25 PM) Urine culture SEE COMMENTComment: Bacteriuria [facility] DEPARTMENT OF PATHOLOGY screen negative. AND GENOMIC MEDICINE Performing Organization Address City/[facility]/Zipcode Phone Number [facility] DEPARTMENT OF PATHOLOGY AND [address] [place], [place] [id number] [facility] XR Chest 2 Vw (05/12/2017 12:13 PM) Narrative Performed At EXAMINATION:XR CHEST 2 VW RADIANT CLINICAL HISTORY:syncope COMPARISON:To previous examination 03/09/2015 IMPRESSION: Changes related midline sternotomy are noted. Transvenous pacemaker is present. Slight costophrenic angle blunting is noted involving the left side. The lungs otherwise are clear. [id number] Procedure Note Hm Interface, Radiology Results Incoming - 05/12/2017 12:18 PM [facility] EXAMINATION: XR CHEST 2 VW CLINICAL HISTORY: syncope COMPARISON: To previous examination 03/09/2015 IMPRESSION: Changes related midline sternotomy are noted. Transvenous pacemaker is present. Slight costophrenic angle blunting is noted involving the left side. The lungs otherwise are clear. [id number] Performing Organization Address [facility] Phone Number [facility] [address] [place] [phone] Partial thromboplastin time, activated (05/12/2017 12:03 PM) PTT 30.4 23.0 - 36.0 sec [facility] DEPARTMENT OF PATHOLOGY Comment: AND [facility] PTT therapeutic range for unfractionated heparin is 61.0-112.0 seconds which corresponds to Anti-Xa 0.3-0.7 U/ml. Specimen Blood Performing Organization Address [facility] Phone Number [facility] DEPARTMENT OF PATHOLOGY AND [address] [place] [address] Prothrombin time with INR (05/12/2017 12:03 PM) Prothrombin time 16.7 (H) 12.0 - 15.0 sec [facility] DEPARTMENT OF PATHOLOGY AND GENOMIC MEDICINE INR 1.3 [facility] DEPARTMENT OF Comment: PATHOLOGY AND GENOMIC The International Normalized Ratio (INR) is a therapeutic MEDICINE monitoring tool for patients who are stable on oral anticoagulant therapy. An INR of 2.0-3.0 is suggested for deep vein thrombosis/pulmonary embolism. Specimen Blood Performing Organization Address [facility] Phone Number [facility] DEPARTMENT OF PATHOLOGY AND [address] [place], [place] [id number] [facility] B natriuretic peptide (05/12/2017 12:03 PM) BNP 196 (H) 0 - 100 pg/mL [facility] DEPARTMENT OF PATHOLOGY AND GENOMIC MEDICINE Specimen Blood Performing Organization Address [facility] Phone Number [facility] DEPARTMENT OF PATHOLOGY AND [address] [place] [address] [facility] Comprehensive metabolic panel (05/12/2017 12:03 PM) Sodium 141 135 - 148 mEq/L [facility] DEPARTMENT OF PATHOLOGY AND GENOMIC MEDICINE Potassium 4.7 3.5 - 5.0 mEq/L [facility] DEPARTMENT OF PATHOLOGY AND GENOMIC MEDICINE Chloride 103 98 - 112 mEq/L [facility] DEPARTMENT OF PATHOLOGY AND GENOMIC MEDICINE CO2 27 24 - 31 mEq/L [facility] DEPARTMENT OF PATHOLOGY AND GENOMIC MEDICINE Anion gap 11 7 - 15 mEq/L [facility] DEPARTMENT OF Comment: PATHOLOGY AND GENOMIC Starting from September , anion gap calculation MEDICINE no longer incorporates potassium. Please note the change. BUN 25 (H) 8 - 23 mg/dL [facility] DEPARTMENT OF PATHOLOGY AND GENOMIC MEDICINE Creatinine 1.9 (H) 0.7 - 1.2 mg/dL [facility] DEPARTMENT OF PATHOLOGY AND GENOMIC MEDICINE Glucose 112 (H) 65 - 99 mg/dL [facility] DEPARTMENT OF PATHOLOGY AND GENOMIC MEDICINE Calcium 8.6 (L) 8.8 - 10.2 mg/dL [facility] DEPARTMENT OF PATHOLOGY AND GENOMIC MEDICINE Protein 6.0 (L) 6.3 - 8.3 g/dL [facility] DEPARTMENT OF Comment: PATHOLOGY AND GENOMIC [place] 4.6-7.0 g/dL MEDICINE 1 week 4.4-7.6 g/dL 7 months-1year5.1-7.3 g/dL 1-2 years5.6-7.5 g/dL >3 years6.0-8.0 g/dL 18-150 6.3-8.3 g/dL Albumin 3.4 (L) 3.5 - 5.0 g/dL [facility] DEPARTMENT OF PATHOLOGY AND GENOMIC MEDICINE A/G ratio 1.3 0.7 - 3.8 [facility] DEPARTMENT OF PATHOLOGY AND GENOMIC MEDICINE Alkaline phosphatase 54 40 - 129 U/L [facility] DEPARTMENT OF PATHOLOGY AND GENOMIC MEDICINE AST 24 10 - 50 U/L [facility] DEPARTMENT OF PATHOLOGY AND GENOMIC MEDICINE ALT 16 5 - 50 U/L [facility] DEPARTMENT OF PATHOLOGY AND GENOMIC MEDICINE Total bilirubin 0.5 0.0 - 1.2 mg/dL [facility] DEPARTMENT OF PATHOLOGY AND GENOMIC MEDICINE Specimen Plasma specimen Performing Organization Address City/State/[facility] Phone Number [facility] DEPARTMENT OF PATHOLOGY AND [address] [place] [address] [facility] ECG 12 lead (05/12/2017 12:00 PM) Ventricular rate 73 [facility] Atrial rate 73 [facility] QRSD interval 170 [facility] QT interval 446 [facility] QTC interval 491 [facility] QRS axis 1 -86 [facility] T wave axis 102 [facility] EKG impression AV sequential or dual chamber electronic [facility] pacemaker-In automated comparison with ECG of 31-MAR-2016 14:57,-No significant change was found- Performing Organization Address City/State/Zipcode Phone Number [facility] MUSE [address] [place] [address] after 01/15/2017 Insurance Payer Benefit Plan / Group Subscriber ID Type Phone Address [facility] xxxxxxxxx HMO [phone] [place] [id number]
[2018-01-16 12:37] LABS: Absolute Lymphocytes (CBC) 2.1 K/uL (0.7-4.9); Absolute Monocytes 0.5 K/uL (0.1-1.3); Absolute Neutrophil 4.2 K/uL (1.8-8.0); Basophils % 0.7 % (0-1.3); Eosinophils % 1.7 % (0-4.4); MCH 29.6 pg (27.0-35.0); MCV 88.1 fL (80-100); MPV 9.7 fL (7.6-11.3); Monocytes % 7.5 % (3.3-12.3); RBC Red Blood Cell Count 5.22 M/uL (4.33-5.43)
--- NOTE | 2018-01-16 12:57 | RAD REPORT ---
EXAM DESCRIPTION: CT - Head Brain Wo Cont - 01/16/2018 12:51 pm CLINICAL HISTORY: DIZZINESS Headache, drowsiness COMPARISON: Head Brain Wo Cont dated 01/07/2017; Head Brain Wo Cont dated 10/15/2016 TECHNIQUE: All CT scans are performed using dose optimization technique as appropriate and may inclu de automated exposure control or mA/KV adjustment according to patient size. FINDINGS: No intracranial hemorrhage, hydrocephalus or extra-axial fluid collection.Moderate general ized brain atrophy is present with mild periventricular and deep white matter chronic microvascular i schemic changes.No areas of brain edema or evidence of midline shift. The paranasal sinuses and mastoids are clear. The calvarium is intact. Vertebral arteries are atheros clerotic. IMPRESSION: No acute intracranial abnormality.
[2018-01-16] MEDS ORDERED: NA CHLORIDE 0.9% 500 ML ONE (13:01)
[2018-01-16 13:02] LABS: Albumin 3.6 g/dL (3.4-5.0); Bilirubin Direct 0.2 mg/dL (0-0.2); Bilirubin Total 0.5 mg/dL (0.2-1.0); Magnesium 2.2 mg/dL (1.8-2.4); Potassium 3.2 mmol/L (3.5-5.1); Protein, Total 6.7 g/dL (6.4-8.2)
--- NOTE | 2018-01-16 14:16 | EKG ---
Test Date: 2018-01-16 Test Time: 12:25:49 [employer]: [place] MEASUREMENT RESULTS: Intervals: Rate: 75 SD: QRSD: 180 QT: 472 QTc: 527 Sebastian: P: 79 SD: QRS: -86 T: 93 INTERPRETIVE STATEMENTS: Atrial-sensed ventricular-paced rhythm Abnormal ECG Compared to ECG 01/07/2017 13:40:36 AV dual-paced complex(es) or rhythm no longer present Electronically Signed On 01-16-18 14:16:05 CDT by James Smith
--- NOTE | 2018-01-16 14:27 | ER ---
Nurse's Notes [facility] Name: Huy Anaya Age: 87 yrs Sex: Male : 1930 Arrival Date: 01/16/2018 Time: 11:58 Bed 16 Private MD: Nabeel Barragan E Diagnosis: Dizziness and giddiness;Dehydration;Hypokalemia Presentation: 01/16 12:00 Presenting complaint: Patient states: "I was working outside and I felt like I was aa5 going to pass out because it's so hot". Pt reports generalized weakness, headache, and nausea. Pt denies vomiting. Pt states "I only feel dizzy when I am outside". 12:00 Transition of care: patient was not received from another setting of care. Onset of aa5 symptoms was January 16, 2018. Risk Assessment: Do you want to hurt yourself or someone else? Patient reports no desire to harm self or others. Initial Sepsis Screen: Does the patient meet any 2 criteria? No. Patient's initial sepsis screen is negative. Does the patient have a suspected source of infection? No. Patient's initial sepsis screen is negative. Care prior to arrival: None. 12:00 Method Of Arrival: Ambulatory aa5 12:00 Acuity: MARY 3 aa5 Historical: - Allergies: 12:00 ACETAMINOPHEN; aa5 12:00 hydrocodone bitartrate (bulk); aa5 12:00 Iodine; aa5 - PMHx: 12:00 Anxiety; Depression; enlarged prostate; GERD; Hypertension; Myocardial infarction; aa5 - PSHx: 12:00 Heart Surgery; pacemaker; aa5 - Immunization history:: Adult Immunizations unknown. - Social history:: Smoking status: Patient/guardian denies using tobacco. - Ebola Screening: : No symptoms or risks identified at this time. - Family history:: not pertinent. - Hospitalizations: : No recent hospitalization is reported. Screenin:12 Abuse screen: Denies threats or abuse. Denies injuries from another. Nutritional aj1 screening: No deficits noted. Tuberculosis screening: No symptoms or risk factors identified. Assessment: 12:12 General: Appears in no apparent distress. comfortable, Behavior is calm, cooperative, aj1 appropriate for age. Pain: Complains of pain in head. Neuro: Level of Consciousness is awake, alert, obeys commands, Oriented to person, place, time, situation, Moves all extremities. Full function Speech is normal, Facial symmetry appears normal, Reports dizziness, headache near syncope. Cardiovascular: Denies chest pain, Heart tones S1 S2 present Patient's skin is warm and dry. Rhythm is regular. Respiratory: Airway is patent Respiratory effort is even, unlabored, Respiratory pattern is regular, symmetrical. GI: Abdomen is round non-distended, Abd is soft and non tender X 4 quads. Reports diarrhea, nausea, Patient currently denies vomiting. GI:. : No signs and/or symptoms were reported regarding the genitourinary system. EENT: No signs and/or symptoms were reported regarding the EENT system. Derm: No signs and/or symptoms reported regarding the dermatologic system. Skin is pink, warm \\T\\ dry. normal. Musculoskeletal: No signs and/or symptoms reported regarding the musculoskeletal system. Circulation, motion, and sensation intact. 13:15 Reassessment: Patient appears in no apparent distress at this time. No changes from aj1 previously documented assessment. Patient and/or family updated on plan of care and expected duration. Pain level reassessed. Patient is alert, oriented x 3, equal unlabored respirations, skin warm/dry/pink. 14:09 Reassessment: Patient appears in no apparent distress at this time. No changes from aj1 previously documented assessment. Patient and/or family updated on plan of care and expected duration. Pain level reassessed. Patient is alert, oriented x 3, equal unlabored respirations, skin warm/dry/pink. 15:07 Reassessment: Patient appears in no apparent distress at this time. No changes from aj1 previously documented assessment. Patient and/or family updated on plan of care and expected duration. Pain level reassessed. Patient is alert, oriented x 3, equal unlabored respirations, skin warm/dry/pink. Vital Signs: 12:04 BP 133 / 85; Pulse 81; Resp 16 S; Temp 97.4(O); Pulse Ox 96% on R/A; Weight 87.09 kg aa5 (R); Height 5 ft. 5 in. (165.10 cm) (R); Pain 8/10; 14:10 BP 110 / 81; Pulse 70; Resp 21; Pulse Ox 95% on R/A; aj1 15:08 BP 122 / 75; Pulse 75; Resp 18; Pulse Ox 97% ; aj1 12:04 Body Mass Index 31.95 (87.09 kg, 165.10 cm) aa5 ED Course: 11:58 Patient arrived in ED. mr 11:58 Nabeel Barragan MD is Private Physician. mr 12:04 Triage completed. aa5 12:04 Arm band placed on Patient placed in an exam room, on a stretcher. aa5 12:08 Josefina Birmingham RN is Primary Nurse. aj1 12:10 Jordi [facility] MD is Attending Physician. rn 12:12 Patient has correct armband on for positive identification. Bed in low position. Call aj1 light in reach. Side rails up X 1. 12:12 No provider procedures requiring assistance completed. aj1 12:31 Initial lab(s) drawn, by me, sent to lab. Inserted saline lock: 20 gauge in left aj antecubital area, using aseptic technique. Blood collected. 12:[address] via stretcher. 12:51 CT Head Brain wo Cont In Process Unspecified. EDMS 15:08 IV discontinued, intact, bleeding controlled, No redness/swelling at site. Pressure aj1 dressing applied. Administered Medications: 13:00 Drug: NS 0.9% 500 ml Route: IV; Rate: bolus; Site: left forearm; hj 15:09 Follow up: IV Status: Completed infusion; IV Intake: 500ml aj1 15:07 Drug: Potassium Chloride 40 mEq Route: PO; aj1 15:09 Follow up: Response: No adverse reaction aj1 15:07 Drug: Calcium Carbonate 500 mg 2 tablet Route: PO; aj1 15:09 Follow up: Response: No adverse reaction aj1 Intake: 15:09 IV: 500ml; Total: 500ml. aj1 Outcome: 14:26 Discharge ordered by . rn 15:08 Discharged to home ambulatory. aj1 15:08 Condition: good 15:08 Discharge instructions given to patient, Instructed on discharge instructions, follow up and referral plans. Demonstrated understanding of instructions, follow-up care. 15:10 Patient left the ED. aj1 Signatures: Dispatcher [employer] EDMS Josefina Birmingham RN RN aj1 Daniela Dorman mr Jordi [facility] MD MD rn Calderon, Audri, RN RN 5 Jolly Kim César Fajardo RN RN Corrections: (The following items were deleted from the chart) 12:05 12:04 Pulse 81bpm; Resp 16bpm; Spontaneous; Pulse Ox 96% RA; Temp 97.4F Oral; 87.09 kg aa5 Reported; Height 5 ft. 5 in. Reported; BMI: 31.9; Pain 8/10; aa5 12:26 12:00 Presenting complaint: Patient states: "I was working outside and I felt like I aa5 was going to pass out". Pt reports generalized weakness, headache, and nausea. Pt denies vomiting. Pt states "I only feel dizzy when I am outside" aa5
--- NOTE | 2018-01-16 14:27 | EDPHYS ---
Physician Documentation [facility] Name: Huy Anaya Age: 87 yrs Sex: Male : 1930 Arrival Date: 01/16/2018 Time: 11:58 Bed 16 Private MD: Nabeel Barragan E ED Physician Jordi [facility] HPI: 01/16 13:31 This 87 yrs old Male presents to ER via Ambulatory with complaints of rn Dizziness, Headache, Diarrhea. 13:31 The patient presents with dizziness, feeling faint, generalized weakness, rn lightheadedness. Onset: The symptoms/episode began/occurred. 13:31 Onset: The symptoms/episode began/occurred 3 day(s) ago. Modifying factors: The rn symptoms are alleviated by lying down, the symptoms are aggravated by standing up, changing position. Associated signs and symptoms: Pertinent positives: headache, near-syncope. Severity of symptoms: At their worst the symptoms were moderate in the emergency department the symptoms have improved. The patient has experienced similar episodes in the past. Reports afew episodes of diarrhea recently, works daily outside, construction, + lightheaded and near syncope, takes lasix and doesn't drink water do to CHF, states this has happened multiple times, sometimes has to come in for fluids because dehydrated, no focal weakness/numbness. No syncope. . Historical: - Allergies: 12:00 ACETAMINOPHEN; aa5 12:00 hydrocodone bitartrate (bulk); aa5 12:00 Iodine; aa5 - PMHx: 12:00 Anxiety; Depression; enlarged prostate; GERD; Hypertension; Myocardial infarction; aa5 - PSHx: 12:00 Heart Surgery; pacemaker; aa5 - Immunization history:: Adult Immunizations unknown. - Social history:: Smoking status: Patient/guardian denies using tobacco. - Ebola Screening: : No symptoms or risks identified at this time. - Family history:: not pertinent. - Hospitalizations: : No recent hospitalization is reported. ROS: 13:31 Constitutional: Negative for fever, chills, and weight loss, Eyes: Negative for injury, rn pain, redness, and discharge, Neck: Negative for injury, pain, and swelling, Cardiovascular: Negative for chest pain, palpitations, and edema, Respiratory: Negative for shortness of breath, cough, wheezing, and pleuritic chest pain, Abdomen/GI: Negative for abdominal pain, constipation MS/Extremity: Negative for injury and deformity, Skin: Negative for injury, rash, and discoloration, Neuro: Negative for numbness, tingling, and seizure. Exam: 13:31 Constitutional: This is a well developed, well nourished patient who is awake, alert, rn and in no acute distress. Head/Face: Normocephalic, atraumatic. Eyes: Pupils equal round and reactive to light, extra-ocular motions intact. Lids and lashes normal. Conjunctiva and sclera are non-icteric and not injected. Cornea within normal limits. Periorbital areas with no swelling, redness, or edema. ENT: dry MM Neck: Trachea midline, no thyromegaly or masses palpated, and no cervical lymphadenopathy. Supple, full range of motion without nuchal rigidity, or vertebral point tenderness. No Meningismus. Cardiovascular: Regular rate and rhythm with a normal S1 and S2. No gallops, murmurs, or rubs. Normal PMI, no JVD. No pulse deficits. Respiratory: Lungs have equal breath sounds bilaterally, clear to auscultation and percussion. No rales, rhonchi or wheezes noted. No increased work of breathing, no retractions or nasal flaring. Abdomen/GI: Soft, non-tender, with normal bowel sounds. No distension or tympany. No guarding or rebound. No evidence of tenderness throughout. MS/ Extremity: Pulses equal, no cyanosis. Neurovascular intact. Full, normal range of motion. Equal circumference. Neuro: Awake and alert, GCS 15, oriented to person, place, time, and situation. Cranial nerves II-XII grossly intact. Motor strength 5/5 in all extremities. Sensory grossly intact. Vital Signs: 12:04 BP 133 / 85; Pulse 81; Resp 16 S; Temp 97.4(O); Pulse Ox 96% on R/A; Weight 87.09 kg aa5 (R); Height 5 ft. 5 in. (165.10 cm) (R); Pain 8/10; 14:10 BP 110 / 81; Pulse 70; Resp 21; Pulse Ox 95% on R/A; aj1 15:08 BP 122 / 75; Pulse 75; Resp 18; Pulse Ox 97% ; aj1 12:04 Body Mass Index 31.95 (87.09 kg, 165.10 cm) aa5 MDM: 12:10 Patient medically screened. rn 14:24 Differential diagnosis: generalized weakness, hypovolemia, idiopathic dizziness, rn near-syncope. Data reviewed: vital signs, nurses notes, lab test result(s), EKG, radiologic studies, CT scan, and as a result, I will discharge patient. 14:25 Counseling: I had a detailed discussion with the patient and/or guardian regarding: the rn historical points, exam findings, and any diagnostic results supporting the discharge/admit diagnosis, lab results, radiology results, the need for outpatient follow up, to return to the emergency department if symptoms worsen or persist or if there are any questions or concerns that arise at home. Response to treatment: the patient's symptoms have mildly improved after treatment, and as a result, I will discharge patient. Special discussion: I discussed with the patient/guardian in detail that at this point there is no indication for admission to the hospital. It is understood, however, that if the symptoms persist or worsen the patient needs to return immediately for re-evaluation. ED course: Pt states feels ok, improved after fluids, wants to go home, recommend decreasing PM lasix and pcp f/u. . 01/16 12:17 Order name: Basic Metabolic Panel; Complete Time: 14:01/16 12:17 Order name: CBC with Diff; Complete Time: :01/16 12:17 Order name: Hepatic Function; Complete Time: 14:01/16 12:17 Order name: Lipase; Complete Time: 14:01/16 12:17 Order name: Magnesium; Complete Time: 14:01/16 12:17 Order name: CT Head Brain wo Cont; Complete Time: 12:01/16 12:17 Order name: Troponin (emerg Dept Use Only); Complete Time: 14:01/16 12:17 Order name: EKG; Complete Time: 12:18 01/16 12:17 Order name: Cardiac monitoring; Complete Time: :01/16 12:17 Order name: N-Terminal Pro-brain Natriuretic Peptide; Complete Time: 14:01/16 12:17 Order name: EKG - Nurse/Tech; Complete Time: 12:01/16 12:17 Order name: IV Saline Lock; Complete Time: :01/16 12:17 Order name: Labs collected and sent; Complete Time: 12:36 rn 01/16 12:17 Order name: NPO; Complete Time: 12:31 rn 01/16 12:17 Order name: O2 Per Protocol; Complete Time: 12:31 rn 01/16 12:17 Order name: O2 Sat Monitoring; Complete Time: 12:31 rn Administered Medications: 13:00 Drug: NS 0.9% 500 ml Route: IV; Rate: bolus; Site: left forearm; hj 15:09 Follow up: IV Status: Completed infusion; IV Intake: 500ml aj1 15:07 Drug: Potassium Chloride 40 mEq Route: PO; aj1 15:09 Follow up: Response: No adverse reaction aj1 15:07 Drug: Calcium Carbonate 500 mg 2 tablet Route: PO; aj1 15:09 Follow up: Response: No adverse reaction aj1 Disposition: 01/16/18 14:26 Discharged to Home. Impression: Dizziness and giddiness, Dehydration, Hypokalemia. - Condition is Stable. - Discharge Instructions: Dehydration, Adult, Dizziness, Hypokalemia. - Medication Reconciliation Form, Thank You Letter, Antibiotic Education, Prescription Opioid Use form. - Follow up: Private Physician; When: As needed; Reason: Recheck today's complaints, Re-evaluation by your physician. - Problem is new. - Symptoms have improved. Signatures: Dispatcher [employer] EDJosefina Guerra RN RN aj1 Jordi [facility] MD MD rn Calderon, Audri, RN RN aa5 César Fajardo RN RN hj Corrections: (The following items were deleted from the chart) 15:10 14:26 01/16/2018 14:26 Discharged to Home. Impression: Dizziness and giddiness; aj1 Dehydration; Hypokalemia. Condition is Stable. Forms are Medication Reconciliation Form, Thank You Letter, Antibiotic Education, Prescription Opioid Use. Follow up: Private Physician; When: As needed; Reason: Recheck today's complaints, Re-evaluation by your physician. Problem is new. Symptoms have improved. rn
[2018-01-16] MEDS ORDERED: POTASSIUM CL SA 10 MEQ TAB PO ONE ×2 (14:29→15:00)
[2018-01-16] MEDS ORDERED: CALCIUM CARBONATE 500 MG TAB PO ONE (15:00)
[2018-01-16 15:15] VITALS: TEMP 97.4
[2018-01-16 15:17] VITALS: BP 122/75; O2SAT 97
== END 2018-01-16 15:10 | disposition home or self-care (01) ==
LOC: ER 11:55
DX: E86.0 Dehydration (principal); E87.6 Hypokalemia; I10 Essential (primary) hypertension; I25.2 Old myocardial infarction; Z88.5 Allergy status to narcotic agent; Z88.6 Allergy status to analgesic agent; Z95.0 Presence of cardiac pacemaker; Z91.048 Other nonmedicinal substance allergy status
CPT/HCPCS: 36415; 70450; 80048; 80076; 83690; 83735; 83880; 84484; 85025; 93005; 96360; 96361; 99284

== ENCOUNTER 2018-05-15 09:55 | Emergency (ER) | payer OTHER ==
--- OUTSIDE RECORDS SUMMARY | 2018-05-15 09:58 | XMS REPORT | Clinical Summary ---
:1930 Author Organization [facility] [employer] Address [address] [place] [address] Care Team Providers Name Role Phone Asked, No Pcp Primary Care Provider Unavailable Allergies Active Allergy Reactions Severity Noted Date Comments Ibuprofen Other (See Comments) Medium 03/31/2016 Agitation. Patient states "I lose my mind". Hydrocodone-Acetaminoph 05/12/2017 Pt's daughter en reported "he acts crazy." Medications Medication Sig Dispensed Refills Start Date End Date Status pantoprazole Take 40 mg by 0 Active (PROTONIX) 40 MG EC mouth daily. tablet tamsulosin (FLOMAX) Take 0.4 mg by 0 Active 0.4 mg mouth nightly. capsule,extended release 24hr potassium chloride Take 10 mEq by 0 Active (K-DUR,KLOR-CON) 10 mouth daily. MEQ CR tablet simvastatin (ZOCOR) Take 40 mg by 0 Active 40 MG tablet mouth daily. PARoxetine (PAXIL) Take 30 mg by 0 Active 30 MG tablet mouth daily. warfarin (COUMADIN) Take 4 mg by 0 Active 4 MG tablet mouth. Once daily on Sunday, Sunday, Sunday, , and Sunday warfarin (COUMADIN) Take 2 mg by 0 Active 2 MG tablet mouth. Once daily on Sunday and Sunday travoprost Administer 1 drop 0 Active (TRAVATAN Z) 0.004 to both eyes % nightly. melatonin 10 mg Take 1 capsule 30 capsule 0 05/13/2017 06/12/2017 capsule (10 mg total) by mouth nightly as needed (insomnia) for up to 30 days. 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 Last Filed Vital Signs Not on file Plan of Treatment Health Maintenance Due Date Last Done Comments SHINGRIX VACCINE (1 of 2) 1979 ZOSTER VACCINE 1989 PNEUMOCOCCAL POLYSACCHARIDE VACCINE AGE 65 AND OVER 1994 PNEUMOCOCCAL-13 1994 INFLUENZA VACCINE 01/23/2018 Implants Implanted Type Area Membership Sales Advisor Device Identifier Shelf Expiration Model / Serial Date / Lot Pacemaker Pacemaker Results Not on fileafter 05/14/2017 Insurance Payer Benefit Plan / Group Subscriber ID Type Phone Address [facility] xxxxxxxxx HMO Advance Directives Patient has advance care planning documents, and code status on file. For more information, please contact:Jay Cuellar[address] [place] [id number] Code Status Date Activated Date Inactivated Comments Full Code 03/31/2016 9:25 PM 04/01/2016 2:27 PM Code Status decision reached by: Patient
[2018-05-15] MEDS ORDERED: TETANUS & DIPHTHERIA TOX,ADULT 0.5 ML VIAL ONE (10:24)
[2018-05-15] MEDS ORDERED: ONDANSETRON 4 MG/2 ML VIAL ONE (10:25)
[2018-05-15] MEDS ORDERED: NA CHLORIDE 0.9% 1,000 ML ONE (10:25)
--- NOTE | 2018-05-15 10:46 | EDPHYS ---
Physician Documentation [facility] Name: Huy Anaya Age: 88 yrs Sex: Male : 1930 Arrival Date: 05/15/2018 Time: 09:59 Bed 12 Private MD: Angelina Jones K ED Physician Joaquín Mendez HPI: 05/15 10:26 This 88 yrs old Male presents to ER via Ambulatory with complaints of Splinter kb In Hand. 10:26 The patient or guardian reports the patient has a suspected foreign body, of the right kb hand. The reported likely foreign body is sliver of wood. Onset: The symptoms/episode began/occurred yesterday. Current symptoms: foreign body sensation. Treatment Prior to Arrival: tried to remove, and partially removed. The patient has not experienced similar symptoms in the past. The patient has not recently seen a physician. Pt reports he got a splinter in right hand yesterday, removed it, but thinks there is still a piece in there because it is still swollen, painful and red. Historical: - Allergies: 10:08 Ibuprofen; aj1 - Home Meds: 10:08 Alprazolam Oral [Active]; blood pressure medicine [Active]; "water pills" [Active]; aj1 tamsulosin oral oral [Active]; paroxetine oral oral [Active]; Potassium Chloride Oral [Active]; - PMHx: 10:08 Anxiety; Depression; enlarged prostate; GERD; Hypertension; Myocardial infarction; aj1 - Immunization history:: Flu vaccine is not up to date. - Social history:: Smoking status: Patient/guardian denies using tobacco. - Ebola Screening: : Patient denies travel to an Ebola-affected area in the 21 days before illness onset. ROS: 10:23 Constitutional: Negative for fever, chills, and weight loss, Cardiovascular: Negative kb for chest pain, palpitations, and edema, Respiratory: Negative for shortness of breath, cough, wheezing, and pleuritic chest pain, Abdomen/GI: Negative for abdominal pain, nausea, vomiting, diarrhea, and constipation, Neuro: Negative for headache, weakness, numbness, tingling, and seizure. 10:23 Skin: Positive for erythema, puncture, swelling, of the medial aspect of right hand. Exam: 10:23 Constitutional: This is a well developed, well nourished patient who is awake, alert, kb and in no acute distress. Head/Face: Normocephalic, atraumatic. Chest/axilla: Normal chest wall appearance and motion. Nontender with no deformity. No lesions are appreciated. Cardiovascular: Regular rate and rhythm with a normal S1 and S2. No gallops, murmurs, or rubs. Normal PMI, no JVD. No pulse deficits. Respiratory: Lungs have equal breath sounds bilaterally, clear to auscultation and percussion. No rales, rhonchi or wheezes noted. No increased work of breathing, no retractions or nasal flaring. Abdomen/GI: Soft, non-tender, with normal bowel sounds. No distension or tympany. No guarding or rebound. No evidence of tenderness throughout. MS/ Extremity: Pulses equal, no cyanosis. Neurovascular intact. Full, normal range of motion. Neuro: Awake and alert, GCS 15, oriented to person, place, time, and situation. Cranial nerves II-XII grossly intact. Motor strength 5/5 in all extremities. Sensory grossly intact. Cerebellar exam normal. Normal gait. 10:23 Skin: injury, puncture(s), that are superficial, of the medial aspect of right hand. Vital Signs: 10:08 BP 114 / 86; Pulse 73; Resp 18; Temp 97.6; Pulse Ox 97% on R/A; Weight 86.64 kg (R); aj1 Height 5 ft. 6 in. (167.64 cm) (R); Pain 4/10; 10:08 Body Mass Index 30.83 (86.64 kg, 167.64 cm) aj1 MDM: 10:10 Patient medically screened. kb 10:26 Data reviewed: vital signs, nurses notes. Data interpreted: Pulse oximetry: on room air kb is 97 %. Interpretation: normal. 10:45 Counseling: I had a detailed discussion with the patient and/or guardian regarding: the kb historical points, exam findings, and any diagnostic results supporting the discharge/admit diagnosis, radiology results, the need for outpatient follow up, a family practitioner, to return to the emergency department if symptoms worsen or persist or if there are any questions or concerns that arise at home. 05/15 10:11 Order name: Hand Right 3 View XRAY; Complete Time: 11:04 kb Administered Medications: 10:19 Drug: Tetanus-Diphtheria Toxoid Adult 0.5 ml {Fork Operator: Vanu. Exp: ss 07/13/2020. Lot #: [id number]. } Route: IM; Site: right deltoid; 11:24 Follow up: Response: No adverse reaction 11:20 Drug: KeFLEX 500 mg Route: PO; 11:24 Follow up: Response: Medication administered at discharge. Disposition: 13:10 Co-signature as Attending Physician, Joaquín Mendez MD I agree with the assessment and bridget plan of care. Disposition: 05/15/18 10:45 Discharged to Home. Impression: Puncture wound without foreign body of right hand. - Condition is Stable. - Discharge Instructions: Puncture Wound, [id number]. - Prescriptions for Keflex 500 mg Oral Capsule - take 1 capsule by ORAL route every 8 hours for 10 days; 30 capsule. - Medication Reconciliation Form, Thank You Letter, Antibiotic Education, Prescription Opioid Use form. - Follow up: Emergency Department; When: As needed; Reason: Worsening of condition. Follow up: Private Physician; When: 2 - 3 days; Reason: Recheck today's complaints, Continuance of care, Re-evaluation by your physician. Signatures: Dispatcher [employer] EDYuni Roca, PATIENT ACCOUNTS MANAGER-C PATIENT ACCOUNTS MANAGER-Josefina Laurent RN RN ajJoaquín Berg MD MD cha Smirch, Shelby, RN RN Corrections: (The following items were deleted from the chart) 11:25 10:45 05/15/2018 10:45 Discharged to Home. Impression: Puncture wound without foreign ss body of right hand. Condition is Stable. Forms are Medication Reconciliation Form, Thank You Letter, Antibiotic Education, Prescription Opioid Use. Follow up: Emergency Department; When: As needed; Reason: Worsening of condition. Follow up: Private Physician; When: 2 - 3 days; Reason: Recheck today's complaints, Continuance of care, Re-evaluation by your physician. kb
--- NOTE | 2018-05-15 10:46 | ER ---
Nurse's Notes [facility] Name: Huy Anaya Age: 88 yrs Sex: Male : 1930 Arrival Date: 05/15/2018 Time: 09:59 Bed 12 Private MD: Angelina Jones K Diagnosis: Puncture wound without foreign body of right hand Presentation: 05/15 10:03 Presenting complaint: Patient states: He was working yesterday and got a splinter in aj1 his right hand. He got it out but he feels like there is still something in there because it is still hurting. Transition of care: patient was not received from another setting of care. Onset of symptoms was May 14, 2018. Risk Assessment: Do you want to hurt yourself or someone else? Patient reports no desire to harm self or others. Initial Sepsis Screen: Does the patient meet any 2 criteria? No. Patient's initial sepsis screen is negative. Does the patient have a suspected source of infection? No. Patient's initial sepsis screen is negative. Care prior to arrival: None. 10:03 Method Of Arrival: Ambulatory aj1 10:03 Acuity: MARY 5 aj1 Triage Assessment: 10:08 General: Appears in no apparent distress. comfortable, Behavior is calm, cooperative, aj1 appropriate for age. Pain: Complains of pain in right hand Pain currently is 4 out of 10 on a pain scale. Neuro: Level of Consciousness is awake, alert, obeys commands. Cardiovascular: Patient's skin is warm and dry. Respiratory: Airway is patent Respiratory effort is even, unlabored, Respiratory pattern is regular, symmetrical. Historical: - Allergies: 10:08 Ibuprofen; aj1 - Home Meds: 10:08 Alprazolam Oral [Active]; blood pressure medicine [Active]; "water pills" [Active]; aj1 tamsulosin oral oral [Active]; paroxetine oral oral [Active]; Potassium Chloride Oral [Active]; - PMHx: 10:08 Anxiety; Depression; enlarged prostate; GERD; Hypertension; Myocardial infarction; aj1 - Immunization history:: Flu vaccine is not up to date. - Social history:: Smoking status: Patient/guardian denies using tobacco. - Ebola Screening: : Patient denies travel to an Ebola-affected area in the 21 days before illness onset. Screenin:24 Abuse screen: Denies threats or abuse. Denies injuries from another. Nutritional ss screening: No deficits noted. Tuberculosis screening: Never had TB. Fall Risk None identified. Assessment: 11:24 Reassessment: Patient appears in no apparent distress at this time. Patient and/or ss family updated on plan of care and expected duration. Pain level reassessed. Patient is alert, oriented x 3, equal unlabored respirations, skin warm/dry/pink. Vital Signs: 10:08 BP 114 / 86; Pulse 73; Resp 18; Temp 97.6; Pulse Ox 97% on R/A; Weight 86.64 kg (R); aj1 Height 5 ft. 6 in. (167.64 cm) (R); Pain 4/10; 10:08 Body Mass Index 30.83 (86.64 kg, 167.64 cm) aj1 ED Course: 09:59 Patient arrived in ED. sb2 10:00 Angelina Jones MD is Private Physician. sb2 10:06 Triage completed. aj1 10:07 [facility]uni [facility]C [facility]. kb 10:07 Joaquín Mendez MD is Attending Physician. kb 10:08 Arm band placed on Patient placed in an exam room. aj1 10:19 Carmencita Garcia, LOPEZ is Primary Nurse. ss 10:35 X-ray completed. Portable x-ray completed in exam room. Patient tolerated procedure mh1 well. 10:37 Hand Right 3 View XRAY In Process Unspecified. EDMS 11:00 Patient has correct armband on for positive identification. Bed in low position. Call ss light in reach. 11:25 No provider procedures requiring assistance completed. Patient did not have IV access ss during this emergency room visit. Administered Medications: 10:19 Drug: Tetanus-Diphtheria Toxoid Adult 0.5 ml {Activities Leader: FST21. Exp: ss 07/13/2020. Lot #: [id number]. } Route: IM; Site: right deltoid; 11:24 Follow up: Response: No adverse reaction ss 11:20 Drug: KeFLEX 500 mg Route: PO; ss 11:24 Follow up: Response: Medication administered at discharge. ss Outcome: 10:45 Discharge ordered by . kb 11:25 Discharged to home ambulatory, with family. ss 11:25 Condition: good 11:25 Discharge instructions given to patient, family, Instructed on discharge instructions, follow up and referral plans. medication usage, Demonstrated understanding of instructions, follow-up care, medications, Prescriptions given X 1. 11:25 Patient left the ED. ss Signatures: Dispatcher [employer] EDMS Yuni Rodriguez, CEMETERY KEEPER-C GARCÍA-Josefina Laurent RN RN aj1 Deja Carrasquillo mh1 Carmencita Garcia RN RN ss Bailey Barnes sb2 Corrections: (The following items were deleted from the chart) 10:09 10:08 BP 114 / 86; Pulse 73bpm; Resp 18bpm; Pulse Ox 97% RA; Temp 97.6F; 86.64 kg aj1 Reported; Height 5 ft. 0 in. Reported; BMI: 37.3; Pain 4/10; aj1
--- NOTE | 2018-05-15 11:03 | RAD REPORT ---
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 No fracture or dislocation. Vascular calcificat ion. No radiopaque foreign body is seen.
[2018-05-15] MEDS ORDERED: CEPHALEXIN 250 MG CAP ONE (11:26)
[2018-05-15 12:19] VITALS: BP 114/86; TEMP 97.6; O2SAT 97
== END 2018-05-15 11:25 | disposition home or self-care (01) ==
LOC: ER 09:55
DX: S61.431A Puncture wound without foreign body of right hand, initial encounter (principal); X58.XXXA Exposure to other specified factors, initial encounter; Y93.89 Activity, other specified; Y92.9 Unspecified place or not applicable; Z23 Encounter for immunization; Z88.6 Allergy status to analgesic agent; I10 Essential (primary) hypertension; F41.9 Anxiety disorder, unspecified; F32.9 Major depressive disorder, single episode, unspecified; K21.9 Gastro-esophageal reflux disease without esophagitis; I25.2 Old myocardial infarction
CPT/HCPCS: 73130; 90714; 99283; J2405; J7030

== ENCOUNTER 2018-07-18 13:41 | Observation (INO) | payer OTHER ==
--- OUTSIDE RECORDS SUMMARY | 2018-07-18 13:42 | XMS REPORT | Clinical Summary ---
:1930 Author Organization [facility] Address [address] [place] [address] Care Team Providers Name Role Phone Asked, No Pcp Primary Care Provider Unavailable Allergies Active Allergy Reactions Severity Noted Date Comments Ibuprofen Other (See Comments) Medium 03/31/2016 Agitation. Patient states "I lose my mind". Hydrocodone-Acetaminoph 05/12/2017 Pt's daughter en reported "he acts crazy." Medications Medication Sig Dispensed Refills Start Date End Date Status pantoprazole Take 40 mg by mouth 0 Active (PROTONIX) 40 MG EC daily. tablet tamsulosin (FLOMAX) Take 0.4 mg by 0 Active 0.4 mg mouth nightly. capsule,extended release 24hr potassium chloride Take 10 mEq by 0 Active (K-DUR,KLOR-CON) 10 mouth daily. MEQ CR tablet simvastatin (ZOCOR) Take 40 mg by mouth 0 Active 40 MG tablet daily. PARoxetine (PAXIL) 30 Take 30 mg by mouth 0 Active MG tablet daily. warfarin (COUMADIN) 4 Take 4 mg by mouth. 0 Active MG tablet Once daily on Sunday, Sunday, Sunday, , and Sunday warfarin (COUMADIN) 2 Take 2 mg by mouth. 0 Active MG tablet Once daily on Sunday and Sunday travoprost (TRAVATAN Administer 1 drop 0 Active Z) 0.004 % to both eyes nightly. Active Problems Problem Noted Date Acute kidney [...] Health Maintenance Due Date Last Done Comments SHINGLES VACCINES (1 of 2) 1979 PNEUMOCOCCAL POLYSACCHARIDE VACCINE AGE 65 AND OVER 1994 PNEUMOCOCCAL-13 1994 INFLUENZA VACCINE 01/23/2018 Implants Implanted Type Area Commissioning Specialist Device Identifier Shelf Expiration Model / Serial Date / Lot Pacemaker Pacemaker Results Not on fileafter 07/17/2017 Insurance Payer Benefit Plan / Group Subscriber ID Type Phone Address [employer] [facility] xxxxxxxxx HMO Advance Directives Patient has advance care planning documents, and code status on file. For more information, please contact:Jay Cuellar[address] [place] [address] Code Status Date Activated Date Inactivated Comments Full Code 03/31/2016 9:25 PM 04/01/2016 2:27 PM Code Status decision reached by: Patient
[2018-07-18 14:20] LABS: Absolute Lymphocytes (CBC) 1.8 K/uL (0.7-4.9); Absolute Monocytes 0.8 K/uL (0.1-1.3); Absolute Neutrophil 7.3 K/uL (1.8-8.0); Basophils % 0.3 % (0-1.3); Eosinophils % 0.4 % (0-4.4); Hematocrit 45.7 % (39.6-49.0); Lymphocytes % 17.9 % (15.3-44.8); MPV 9.4 fL (7.6-11.3); Monocytes % 8.4 % (3.3-12.3); RBC Red Blood Cell Count 5.24 M/uL (4.33-5.43)
[2018-07-18 14:22] LABS: Protime INR 1.03
--- NOTE | 2018-07-18 14:59 | RAD REPORT ---
EXAM DESCRIPTION: RAD - Chest Single View - 07/18/2018 2:12 pm CLINICAL HISTORY: Chest pain COMPARISON: December 2016 TECHNIQUE: AP portable chest image was obtained 1410 hours . FINDINGS: No acute lung parenchymal process seen. Small granuloma seen in the left upper lung field. Left costophrenic angle blunting has not change from comparison. No significant failure or volume ov erload. Heart size is upper normal, stable with no vascular engorgement. 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 Sternotomy wires are in place. No measurable pleural effusion and no pneumothorax. No acute b donte abnormality seen. No acute aortic findings suspected. IMPRESSION: Chronic pleural and parenchymal findings are present similar to comparison. No acute chest finding seen.
[2018-07-18 15:02] LABS: Bilirubin Direct 0.2 mg/dL (0-0.2); Bilirubin Total 0.9 mg/dL (0.2-1.0); Magnesium 2.3 mg/dL (1.8-2.4); Potassium 3.9 mmol/L (3.5-5.1); Protein, Total 6.8 g/dL (6.4-8.2); Troponin (Emerg Dept Use Only) 0.02 ng/mL (0.0-0.045)
--- NOTE | 2018-07-18 16:48 | EKG ---
Test Date: 2018-07-18 Test Time: 13:50:18 Manager [place]: [place] MEASUREMENT RESULTS: Intervals: Rate: 80 TX: QRSD: 170 QT: 444 QTc: 512 [place]: P: TX: QRS: -87 T: 100 INTERPRETIVE STATEMENTS: AV dual-paced rhythm Abnormal ECG Compared to ECG 01/16/2018 12:25:49 Atrial-sensed ventricular-paced complex(es) or rhythm no longer present Electronically Signed On 07-18-18 16:48:10 SENIOR RESEARCH ENGINEER by Alfonso Guerrier
--- NOTE | 2018-07-18 17:10 | ER ---
Nurse's Notes [facility] Name: Huy Anaya Age: 88 yrs Sex: Male : 1930 Arrival Date: 07/18/2018 Time: 13:46 Bed 18 Private MD: Diagnosis: Chest pain, unspecified Presentation: 07/18 13:48 Presenting complaint: Patient states: started having chest pain this morning, but it tw2 kept getting worse and worse, he took a Nitrol under his tongue at 130 right before we came here, he is also saying his abdomen hurts and his back. Transition of care: patient was not received from another setting of care. Onset of symptoms was July 18, 2018. Risk Assessment: Do you want to hurt yourself or someone else? Patient reports no desire to harm self or others. Initial Sepsis Screen: Does the patient meet any 2 criteria? No. Patient's initial sepsis screen is negative. Does the patient have a suspected source of infection? No. Patient's initial sepsis screen is negative. Care prior to arrival: None. 13:48 Method Of Arrival: Wheelchair tw2 13:48 Acuity: MARY 3 tw2 13:51 Note hand booked folder and stitcher Brandi in room 18 at this time to do pts ekg. tw2 13:59 Acuity: MARY 2 aj Historical: - Allergies: 13:48 Ibuprofen; tw2 - Home Meds: 13:48 tamsulosin Oral [Active]; Alprazolam Oral [Active]; blood pressure medicine [Active]; tw2 paroxetine Oral [Active]; "water pills" [Active]; Potassium Chloride Oral [Active]; nitroglycerin 0.4 mg SL subl 1 tab every 5 minutes [Active]; - PMHx: 13:48 Anxiety; Depression; enlarged prostate; GERD; Hypertension; Myocardial infarction; tw2 - Immunization history:: Adult Immunizations up to date. - Social history:: Smoking status: Patient/guardian denies using tobacco. - Ebola Screening: : Patient denies travel to an Ebola-affected area in the 21 days before illness onset. Screenin:01 Abuse screen: Denies threats or abuse. Denies injuries from another. Nutritional aj screening: No deficits noted. Tuberculosis screening: No symptoms or risk factors identified. Fall Risk None identified. Assessment: 14:01 General: Appears in no apparent distress. comfortable, Behavior is calm, cooperative, aj appropriate for age. Pain: Complains of pain in chest and left arm. Neuro: Level of Consciousness is awake, alert, obeys commands, Oriented to person, place, time, situation, Appropriate for age. Cardiovascular: Reports chest pain, lightheadedness, shortness of breath, Capillary refill < 3 seconds in bilateral fingers Patient's skin is warm and dry. Rhythm is Respiratory: Airway is patent Respiratory effort is even, unlabored, Respiratory pattern is regular, symmetrical. GI: Abdomen is round obese, Bowel sounds present X 4 quads. Abd is soft and non tender X 4 quads. Derm: Skin is intact, is healthy with good turgor, Skin is pink, warm \\T\\ dry. normal. 18:27 Reassessment: Patient appears in no apparent distress at this time. No changes from aj previously documented assessment. Patient and/or family updated on plan of care and expected duration. Pain level reassessed. Patient is alert, oriented x 3, equal unlabored respirations, skin warm/dry/pink. Patient denies pain at this time. Vital Signs: 13:49 BP 114 / 73; Pulse 78; Resp 18; Temp 98(O); Pulse Ox 95% ; Pain 8/10; tw2 14:00 BP 120 / 73; Pulse 73; Resp 19; Temp 98.0(O); Pulse Ox 96% on R/A; Pain 8/10; mh5 16:25 BP 117 / 73; Pulse 73; Resp 20; Pulse Ox 97% on R/A; aj 17:06 BP 128 / 81; Pulse 76; Resp 19; Temp 98.4(O); Pulse Ox 96% on R/A; mh5 18:28 BP 131 / 76; Pulse 74; Resp 18; Pulse Ox 99% on R/A; aj ED Course: 13:46 Patient arrived in ED. mr 13:49 Triage completed. tw2 13:49 Arm band placed on. tw2 13:51 Brandi Manriquez, RN is Primary Nurse. aj 14:01 Patient has correct armband on for positive identification. Placed in gown. Bed in low mh5 position. Call light in reach. Side rails up X2. Adult w/ patient. Warm blanket given. vp medical on. Pulse ox on. NIBP on. 14:01 Inserted saline lock: 18 gauge in right forearm, using aseptic technique. Blood aj collected. 14:04 EKG done, by radiology special procedure tech. reviewed by Heriberto Yates MD. 3 14:11 X-ray completed. Portable x-ray completed in exam room. Patient tolerated procedure jb2 well. 14:13 XRAY Chest (1 view) In Process Unspecified. EDMS 14:48 Heriberto Yates MD is Attending Physician. kdr 17:09 Benson Hammond MD is Hospitalizing Provider. kdr 18:28 No provider procedures requiring assistance completed. Patient admitted, IV remains in aj place. intact. Administered Medications: No medications were administered Outcome: 17:09 Decision to Hospitalize by Provider. kdr 18:28 Admitted to Med/surg accompanied by tech, family with patient, via wheelchair, room aj 427, Report called to Caity 18:28 Condition: good 18:28 Instructed on the need for admit. 18:29 Patient left the ED. aj Signatures: Dispatcher [employer] EDBrandi Nguyen, RN RN Heriberto Yates MD MD kdr Rivera, Mary mr Meek, Phil jb2 Josefina Diaz RN RN 2 Daniela Arguello [facility] Amarilis Cam 3 Corrections: (The following items were deleted from the chart) 14:06 14:00 BP 120 / 73; Pulse 73bpm; Resp 19bpm; Pulse Ox 96% RA; Temp 98.0F Oral; mh5 mh5
--- NOTE | 2018-07-18 17:11 | EDPHYS ---
Physician Documentation [facility] Name: Huy Anaya Age: 88 yrs Sex: Male : 1930 Arrival Date: 07/18/2018 Time: 13:46 Bed 18 Private MD: ED Physician Heriberto Yates HPI: 07/18 17:09 This 88 yrs old Male presents to ER via Wheelchair with complaints of kdr Abdominal Pain, Back Pain. 17:09 The patient presents with pain that is acute, with no known mechanism of injury. kdr 17:10 The patient or guardian reports chest pain that is located primarily in the anterior kdr chest wall, left, chest diffusely. Onset: suddenly, just prior to arrival, today. The pain radiates to back. Associated signs and symptoms: Pertinent positives: nausea, shortness of breath, Pertinent negatives: diaphoresis. The chest pain is described as aching, burning, a pressure. Duration: The patient or guardian reports a single episode, that is now resolved. Modifying factors: The symptoms are alleviated by NTG, X1. the symptoms are aggravated by exertion. Severity of pain: At its worst the pain was mild in the emergency department the pain has resolved. The patient has experienced similar episodes in the past, multiple times. Historical: - Allergies: 13:48 Ibuprofen; tw2 - Home Meds: 13:48 tamsulosin Oral [Active]; Alprazolam Oral [Active]; blood pressure medicine [Active]; tw2 paroxetine Oral [Active]; "water pills" [Active]; Potassium Chloride Oral [Active]; nitroglycerin 0.4 mg SL subl 1 tab every 5 minutes [Active]; - PMHx: 13:48 Anxiety; Depression; enlarged prostate; GERD; Hypertension; Myocardial infarction; tw2 - Immunization history:: Adult Immunizations up to date. - Social history:: Smoking status: Patient/guardian denies using tobacco. - Ebola Screening: : Patient denies travel to an Ebola-affected area in the 21 days before illness onset. ROS: 17:10 Constitutional: Negative for fever, chills, and weight loss, Eyes: Negative for injury, kdr pain, redness, and discharge, ENT: Negative for injury, pain, and discharge, Neck: Negative for injury, pain, and swelling, Respiratory: Negative for shortness of breath, cough, wheezing, and pleuritic chest pain, Abdomen/GI: Negative for abdominal pain, nausea, vomiting, diarrhea, and constipation, Back: Negative for injury and pain, : Negative for injury, bleeding, discharge, and swelling, MS/Extremity: Negative for injury and deformity, Skin: Negative for injury, rash, and discoloration, Neuro: Negative for headache, weakness, numbness, tingling, and seizure activity. Psych: Negative for depression, anxiety, suicide ideation, homicidal ideation, and hallucinations, Allergy/Immunology: Negative for hives, rash, and allergies, Endocrine: Negative for neck swelling, polydipsia, polyuria, polyphagia, and marked weight changes, Hematologic/Lymphatic: Negative for swollen nodes, abnormal bleeding, and unusual bruising. 17:10 Cardiovascular: Positive for chest pain, Negative for edema, orthopnea, palpitations, paroxysmal nocturnal dyspnea. Exam: 17:10 Constitutional: This is a well developed, well nourished patient who is awake, alert, kdr and in no acute distress. Head/Face: Normocephalic, atraumatic. Eyes: Pupils equal round and reactive to light, extra-ocular motions intact. Lids and lashes normal. Conjunctiva and sclera are non-icteric and not injected. Cornea within normal limits. Periorbital areas with no swelling, redness, or edema. Neck: Trachea midline, no thyromegaly or masses palpated, and no cervical lymphadenopathy. Supple, full range of motion without nuchal rigidity, or vertebral point tenderness. No Meningismus. Chest/axilla: Normal chest wall appearance and motion. Nontender with no deformity. No lesions are appreciated. Cardiovascular: Regular rate and rhythm with a normal S1 and S2. No gallops, murmurs, or rubs. Normal PMI, no JVD. No pulse deficits. Respiratory: Lungs have equal breath sounds bilaterally, clear to auscultation and percussion. No rales, rhonchi or wheezes noted. No increased work of breathing, no retractions or nasal flaring. Abdomen/GI: Soft, non-tender, with normal bowel sounds. No distension or tympany. No guarding or rebound. No evidence of tenderness throughout. Back: No spinal tenderness. No costovertebral tenderness. Full range of motion. Skin: Warm, dry with normal turgor. Normal color with no rashes, no lesions, and no evidence of cellulitis. MS/ Extremity: Pulses equal, no cyanosis. Neurovascular intact. Full, normal range of motion. Neuro: Awake and alert, GCS 15, oriented to person, place, time, and situation. Cranial nerves II-XII grossly intact. Motor strength 5/5 in all extremities. Sensory grossly intact. Cerebellar exam normal. Normal gait. Psych: Awake, alert, with orientation to person, place and time. Behavior, mood, and affect are within normal limits. Vital Signs: 13:49 BP 114 / 73; Pulse 78; Resp 18; Temp 98(O); Pulse Ox 95% ; Pain 8/10; tw2 14:00 BP 120 / 73; Pulse 73; Resp 19; Temp 98.0(O); Pulse Ox 96% on R/A; Pain 8/10; mh5 16:25 BP 117 / 73; Pulse 73; Resp 20; Pulse Ox 97% on R/A; aj 17:06 BP 128 / 81; Pulse 76; Resp 19; Temp 98.4(O); Pulse Ox 96% on R/A; mh5 18:28 BP 131 / 76; Pulse 74; Resp 18; Pulse Ox 99% on R/A; aj MDM: 17:09 Patient medically screened. kdr 17:10 NAKIA Risk Score: 1 - patient's age is greater or equal to 65 years, 1 - Three or more kdr CAD risk factors, 1- Known CAD, 1 - ASA use in past 7 days, 1 - Recent [<24hrs] Severe Angina, TOTAL SCORE = 5. Data reviewed: vital signs, nurses notes. 07/18 14:00 Order name: Basic Metabolic Panel; Complete Time: 16:07/18 14:00 Order name: CBC with Diff; Complete Time: 16:07/18 14:00 Order name: LFT's; Complete Time: 16:07/18 14:00 Order name: Magnesium; Complete Time: 16:07/18 14:00 Order name: NT PRO-BNP; Complete Time: 16:07/18 14:00 Order name: PT-INR; Complete Time: 16:07/18 14:00 Order name: Troponin (emerg Dept Use Only); Complete Time: 16:07/18 14:00 Order name: XRAY Chest (1 view); Complete Time: 16:14 07/18 14:00 Order name: EKG; Complete Time: 14:02 07/18 14:00 Order name: Cardiac monitoring; Complete Time: 14:07/18 14:00 Order name: EKG - Nurse/Tech; Complete Time: 14:07/18 14:00 Order name: IV Saline Lock; Complete Time: 14:07/18 14:00 Order name: Labs collected and sent; Complete Time: 14:07/18 17:37 Order name: Diet Heart Healthy; Complete Time: 17:37 07/18 14:00 Order name: O2 Per Protocol; Complete Time: 14:07/18 14:00 Order name: O2 Sat Monitoring; Complete Time: 14: Administered Medications: No medications were administered Disposition: 07/18/18 17:09 Hospitalization ordered by Benson Hammond for Observation. Preliminary diagnosis is Chest pain, unspecified. - Bed requested for Telemetry/MedSurg (observation). - Status is Observation. aj - Condition is Fair. - Problem is new. - Symptoms have improved. UTI on Admission? No Signatures: Dispatcher [employer] EDBrandi Nguyen RN RN aj Heriberto Yates MD MD [facility] Josefina Diaz RN RN tw2 Cynthia Garza Corrections: (The following items were deleted from the chart) 18:04 17:09 Hospitalization Ordered by Benson Hammond MD for Observation. Preliminary diagnosis eb is Chest pain, unspecified. Bed requested for Telemetry/MedSurg (observation). Status is Observation. Condition is Fair. Problem is new. Symptoms have improved. UTI on Admission? No. kdr 18:29 18:04 07/18/2018 17:09 Hospitalization Ordered by Benson Hammond MD for Observation. aj Preliminary diagnosis is Chest pain, unspecified. Bed requested for Telemetry/MedSurg (observation). Status is Observation. Condition is Fair. Problem is new. Symptoms have improved. UTI on Admission? No. eb
[2018-07-18] MEDS ORDERED: MORPHINE 4 MG/ML SYR IV PRN (18:11)
[2018-07-18] MEDS ORDERED: NITROGLYCERIN 0.4 MG/TAB SL PRN (18:21)
[2018-07-18 21:06] VITALS: BMI 32.3
[2018-07-18] MEDS: METOPROLOL TAR 25 MG TAB PO SCH (21:08)
[2018-07-18] MEDS: ENOXAPARIN 30 MG/0.3 ML SQ SCH (21:09)
--- NOTE | 2018-07-19 05:15 | HP ---
Date of Admission: 07/18/2018 Consultants: Dr. Guerrier with Cardiology. Code status: Full Chief Complaint: Chest pain. History Of Present Illness: The patient is an 88-year-old male with past medical history of coronary artery disease status post CABG, anxiety, depression , BPH, hypertension, hyperlipidemia, chronic kidney disease, who was in his usual state of health until day of admission when the patient felt chest tightness and described some sharp chest pain radiating towards the shoulder. No nausea, vomiting, or diaphoresis. The patient also reports some bloating in his stomach and chest pain, worse with deep breath. The patient otherwise denies any fevers, chills, cough, or sputum production. No ill contacts. The patient's symptoms were constant, moderate, progressively worsening. In the ER , his workup revealed elevated creatinine from baseline at 2.34. WBC was normal. The patient's chest x-ray showed some chronic pleural and parenchymal findings, which were similar to comparison from December of 2016. There are no acute findings. The patient's initial cardiac enzymes and EKG were negative. He was then referred for admission to rule out ACS. When seen in the ER, he was awake, alert, oriented x3, stating that he felt better. Past Medical History: Coronary artery disease status post CABG, anxiety, depression, BPH, hypertension, hyperlipidemia, chronic kidney disease. 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 Allergies: TO HYDROCODONE. Medications: List reviewed. Social History: The patient denies any tobacco use, alcohol use, or illicit drug use. He is independent in his activities of daily living. Family History: Noncontributory in this 88-year-old male. Review of Systems: An 11-point system reviewed, negative except as per HPI. Physical Examination: Vital Signs: Blood pressure 114/73, pulse 78, respirations 18, O2 95% on room air, temperature 98. General: Awake, alert, and oriented x3. Elderly male, obese, ill-appearing, in mild distress. HEENT: Normocephalic, atraumatic. PERRLA. EOMI. Moist mucous membranes. Oropharynx is clear. Poor dentition. Conjunctivae anicteric. Neck: Supple. No JVD. Trachea midline. CV: S1, S2. Regular rate and rhythm. Peripheral pulses present. No murmurs. Respiratory: Moving air well bilaterally. No wheezing or stridor. No use of accessory muscles. Gastrointestinal: Abdomen is soft, mildly distended, nontender. Positive bowel sounds. No guarding or rigidity. Extremities: No clubbing, cyanosis, or edema. No calf tenderness. Neuro: Cranial nerves 2 through 12 intact grossly. No focal neurological deficit. Speech is normal. Skin: No rashes. Normal skin turgor. Psych: Mood is okay. Affect is full. Insight and judgment are good. Laboratory Data: Sodium 138, potassium 3.9, chloride 102, CO2 32, BUN 36, creatinine 2.34, glucose 111, calcium 8.5, magnesium 2.3. BNP 842. WBC 9.9, H and H 15.3 and 45.7, platelets 163. INR 1.03. Chest x-ray shows chronic pleural and parenchymal findings present similar to comparison. No acute chest findings seen. EKG shows AV dual paced rhythm, rate of 80. Assessment And Plan: An 88-year-old male with: 1. Unstable angina. Rule out acute coronary syndrome. Initial enzymes are negative. We will start on chest pain guidelines, beta-jeff, MARY inhibitor, statin, and aspirin. The patient recently discontinued warfarin. 2. Coronary artery disease, [place] artery and [place] heart with angina. 3. Essential hypertension, stable. Resume home medications. 4. Mixed hyperlipidemia. Statin. 5. Acute on chronic kidney disease stage 3. We will continue IV fluids and monitor creatinine level. Avoid nephrotoxins. 6. Benign prostatic hypertrophy. 7. Obesity. Plan: Admit the patient to Med-Surg. Place on observation. We will obtain echocardiogram and consult Cardiology. /AJAY Voice ID: [id number] MTDConcepcion
[2018-07-19 06:46] LABS: Absolute Lymphocytes (CBC) 2.4 K/uL (0.7-4.9); Absolute Monocytes 0.5 K/uL (0.1-1.3); Absolute Neutrophil 3.8 K/uL (1.8-8.0); Basophils % 0.5 % (0-1.3); Eosinophils % 1.4 % (0-4.4); Hematocrit 42.8 % (39.6-49.0); Lymphocytes % 34.9 % (15.3-44.8); MPV 8.9 fL (7.6-11.3); Monocytes % 7.9 % (3.3-12.3); RBC Red Blood Cell Count 4.92 M/uL (4.33-5.43)
[2018-07-19 07:02] LABS: Potassium 3.8 mmol/L (3.5-5.1)
[2018-07-19] MEDS ORDERED: PNEUMOCOCCAL VACCINE 0.5 ML IMVAC ONE (08:00)
[2018-07-19] MEDS ORDERED: ALPRAZOLAM 0.5 MG TABLET PO PRN (08:39)
[2018-07-19 08:51] VITALS: O2SAT 95
[2018-07-19] MEDS ORDERED: TERBINAFINE HCL 250 MG TAB PO SCH (09:00)
[2018-07-19] MEDS ORDERED: PANTOPRAZOLE 40MG TABLET PO SCH (09:00)
[2018-07-19] MEDS ORDERED: ASPIRIN EC 81 MG TAB PO SCH (09:00)
[2018-07-19] MEDS ORDERED: PARoxetine HCl 10 MG TAB PO SCH (09:00)
[2018-07-19] MEDS ORDERED: LISINOPRIL 10 MG TAB PO SCH (09:00)
[2018-07-19] MEDS ORDERED: ACETAMINOPHEN 500 MG TAB PO PRN (09:15)
[2018-07-19] MEDS: METOPROLOL TAR 25 MG TAB PO SCH (10:00)
[2018-07-19] MEDS: ENOXAPARIN 30 MG/0.3 ML SQ SCH (10:01)
--- NOTE | 2018-07-19 12:16 | ECHO ---
HEIGHT: 5 ft 5 in WEIGHT: 194 lb 0 oz DATE OF STUDY: 07/19/[address]: Benson Hammond MD 2-DIMENSIONAL: YES M.MODE: YES DOPPLER: YES COLOR FLOW: YES TDS: YES PORTABLE: NO DEFINITY: NO BUBBLE STUDY: NO DIAGNOSIS: CHEST PAIN CARDIAC HISTORY: CATHERIZATION: YES SURGERY: YES PROSTHETIC VALVE: NO PACEMAKER: YES MEASUREMENTS (cm) DIASTOLIC (NORMALS) SYSTOLIC (NORMALS) IVSd 1.3. (0.6-1.2) LA Diam 4.3 (1.9-4.0) LVEF 40-45% LVIDd 5.3 (3.5-5.7) LVIDs 3.0 (2.0-3.5) %FS % LVPWd 1.1 (0.6-1.2) Ao Diam 3.1 (2.0-3.7) 2 DIMENSIONAL ASSESSMENT: RIGHT ATRIUM: NORMAL LEFT ATRIUM: DILATED RIGHT VENTRICLE: NORMAL LEFT VENTRICLE: NORMAL TRICUSPID VALVE: NORMAL MITRAL VALVE: MITRAL ANNULAR CALCIFICATION PULMONIC VALVE: NORMAL AORTIC VALVE: SCLEROSIS PERICARDIAL EFFUSION: NONE AORTIC ROOT: NORMAL LEFT VENTRICULAR WALL MOTION: MILD GLOBAL HYPOKINESIS. DOPPLER/COLOR FLOW: MILD TRICUSPID REGURGITATION. COMMENTS: MILD GLOBAL HYPOKINESIS. MITRAL ANNULAR CALCIFICATION. AORTIC SCLEROSIS. LEFT ATRIAL ENLARGEMENT. EJECTION FRACTION 40-45%. TECHNOLOGIST: DOMENICO RUBI
[2018-07-19 17:40] VITALS: BP 140/77; TEMP 97.6
--- NOTE | 2018-07-19 19:11 | PN ---
Date of Progress Note: 07/19/2018 Subjective: The patient is seen and examined. Chart reviewed, and case discussed with RN and Dr. Maximo sellers. The patient feels better. No further chest pain. Daughter at the bedside. Treatment plan e xplained. All questions were answered. Does report some pain in his right upper quadrant. Medications: List reviewed. Physical Examination: Vital Signs: Temperature 97.2, heart rate 73, blood pressure 146/89, respirations 18, O2 of 93% on r oom air. General: Awake, alert, oriented x3 without any acute distress. An elderly male, obese. CV: S1, S2. Regular rate and rhythm. Peripheral pulses present. Respiratory: Moving air well bilaterally. No wheezing. Abdomen: Abdomen is soft. Tenderness to palpation in the right upper quadrant. No rebound or guard ing. No distention. Positive bowel sounds. No masses. Extremities: No clubbing, cyanosis, or edema. Neurologic: Nonfocal. Laboratory Data: Sodium 140, potassium 3.8, chloride 103, CO2 of 32, BUN 30, creatinine 1.96, glucos e 98, calcium 8.1. Troponin less than 0.02 x2. Triglycerides 160, cholesterol 146, LDL 74, HDL 40. INR 1.03. WBC 6.8, H and H 14.2 and 42.8, platelets 140. UA pending. Echocardiogram shows EF of 4 0% to 45% with mild global hypokinesis, aortic sclerosis, left atrial enlargement. Assessment: An 88-year-old male with: 1.Unstable angina. Acute coronary syndrome ruled out. Cardiac enzymes negative. Echocardiogram sh ows EF 40% to 45% with mild global hypokinesis. Cardiology on board. Dr. Guerrier does not recommend any further intervention at this time. 2.Right upper quadrant abdominal pain. We will obtain abdominal ultrasound to rule out gallbladder disease. Liver functions were normal from yesterday. 3.Coronary artery disease, [place] artery and [place] heart, with angina, resolved. 4.Essential hypertension, stable. 5.Mixed hyperlipidemia. Continue statin. 6.Tkyzy-mr-cyxgoml kidney disease stage 3. Creatinine is improved, close to baseline. We will avoi d NSAIDs. 7.Benign prostatic hypertrophy. 8.Obesity, BMI of 32. Counseled. 9.Gastrointestinal and deep venous thrombosis prophylaxis addressed. Plan: Follow up on abdominal ultrasound. If no gallbladder pathology is evident, likely discharge h ome or may need possible surgical evaluation if ultrasound is positive. /AJAY Voice ID: [id number] Report ID: [id number]
[2018-07-19] MEDS ORDERED: TAMSULOSIN 0.4 MG SR CAP PO SCH (21:00)
[2018-07-19] MEDS ORDERED: FUROSEMIDE 20 MG TABLET PO SCH (21:00)
[2018-07-19] MEDS ORDERED: ATORVASTATIN 10 MG TAB PO SCH (21:00)
[2018-07-19] MEDS ORDERED: MELATONIN 3 MG TABLET PO ONE (23:08)
--- NOTE | 2018-07-20 05:10 | DS ---
Date of Discharge: 07/19/2018 Consultants: Dr. Guerrier with Cardiology. Discharge Diagnoses: 1.Unstable angina, acute coronary syndrome ruled out. 2.Coronary artery disease, [place] artery and [place] heart, with angina. Acute coronary syndrome rul ed out. 3.Essential hypertension, stable. 4.Right upper quadrant abdominal pain. 5.Mixed hyperlipidemia. Continue statin. 6.Acute on chronic kidney injury stage 3, improved. 7.Benign prostatic hypertrophy. 8.Obesity, BMI 32. Hospital Course: The patient is an 88-year-old male, came in with chest pain. The patient was admit layne for unstable angina. ACS was ruled out. Echocardiogram showed EF of 40% to 45%. Cardiology did not recommend any further testing. He was cleared from Cardiology standpoint. The patient did have some elevated creatinine above baseline. He was started on IV fluids. Did have some improvement. The patient was counseled regarding CHF guidelines of fluid and sodium restrictio n. The patient was then also counseled to reduce his Lasix dose due to his elevated creatinine. The patient then reported right upper quadrant abdominal pain. On the day of discharge, he was schedule d for abdominal ultrasound, however, as he was not n.p.o., it was unable to be done until later in th e evening. However, the patient wished to leave the hospital and have the ultrasound done as an outp atient. He understands the risks of delaying the diagnostic tests. He was counseled regarding his d iet including avoiding fried fatty foods. He did state that his symptoms worsened with meals. His l iver enzymes and bilirubin were normal. Wong sign was negative. The patient was then cleared for discharge and was sent home in a stable condition. Activity: Fall precautions. Medications: As per medication reconciliation list. Followup: Follow up with primary care physician in 2 to 3 days. Return to ER for worsening conditio n. The patient needs to have gallbladder ultrasound done as an outpatient. For physical exam findings, please see progress note dictated on day of discharge. /AJAY Voice ID: [id number] Report ID: [id number]
--- NOTE | 2018-07-21 07:23 | CON ---
Date of Consultation: 07/19/[address] Hammond's service on 07/18/2018. Reason For Consultation: Chest pain and back pain. History Of Present Illness: Mr. Anaya is an 88-year-old [place] male without any significa nt past cardiac history, except for a pacemaker. He does not have a history of coronary artery disea se. He has an ejection fraction of 44% as of August 2016. He also has a history of anxiety, benign p rostatic hypertrophy, gastroesophageal reflux disease, hypertension, and dyslipidemia. He came in [facility] with right-sided chest pain radiating to the back with some nausea but no vomiting. No diaphore sis. Denied any PND, orthopnea, pedal edema, palpitations, or syncope. His pain was not exertional. It was not related to body position, but may have been getting worse after he eats. By the time I saw him, he has already had a negative troponin. He had a BNP of 842. His creatinine is 1.96. His triglyceride was 160. His EKG showed a paced rhythm. His chest x-ray showed chronic interstitial paul ng disease. Past Medical History: As stated above. Allergies: NONE. Review of Systems: Negative. Social History: Negative. Family History: Negative. Medications: At home include Xanax, Flomax, Lasix, Protonix, metoprolol, Paxil, and Zocor. Physical Examination: General: Mr. Anaya looks a lot younger than his stated age. He was in no acute distress. Vital Signs: Stable. He was in sinus rhythm. HEENT: Negative. Neck: Supple without any bruit, lymphadenopathy, JVD, or thyromegaly. Chest: Clear to auscultation and percussion. Cardiac: Revealed a regular rhythm and rate with S4 gallops and an aortic sclerosis murmur. Abdomen: Benign. Extremities: Revealed no clubbing, cyanosis, or edema. Neurological: He was intact. Skin: Dry and intact. Pulses: He has distal pulses bilaterally in the dorsalis pedis and posterior tibial. Diagnostic Data: As stated earlier. Impression And Plan: 1.Atypical chest pain. I think this is mostly gallbladder related or gastric in nature. I doubt th is is coronary artery disease related. There is an echocardiogram pending. I do not think we need t o do a stress test. 2.Status post pacemaker, seems to be functioning normally. 3.Chronic interstitial lung disease. 4.Chronic systolic congestive heart failure that is stable. 5.Renal insufficiency stage 3. 6.Elevated BNP secondary to low EF. 7.Hypertriglyceridemia. 8.Benign prostatic hypertrophy. 9.Anxiety. 10.Gastroesophageal reflux disease. 11.Hypertension. 12.Dyslipidemia. I will discuss the case further with Dr. Hammond. We will see what the echocardiogram shows. No monique e in medical therapy at this point. NGUYỄN/AJAY Voice ID: [id number] Report ID: [id number]
== END 2018-07-19 18:06 | disposition home or self-care (01) ==
LOC: ER 13:41 → ERHOLD 17:17 → 4TH 18:20
PROVIDERS: ADMIT Family Medicine; ATTEND Family Medicine
DX: I25.110 Atherosclerotic heart disease of native coronary artery with unstable angina pectoris (principal); R10.11 Right upper quadrant pain; E78.2 Mixed hyperlipidemia; I12.9 Hypertensive chronic kidney disease with stage 1 through stage 4 chronic kidney disease, or unspecified chronic kidney disease; N18.3 Chronic kidney disease, stage 3 (moderate); N17.9 Acute kidney failure, unspecified; N40.0 Benign prostatic hyperplasia without lower urinary tract symptoms; E66.9 Obesity, unspecified; Z68.32 Body mass index [BMI] 32.0-32.9, adult; Z23 Encounter for immunization
CPT/HCPCS: 36415; 71045; 80048 ×2; 80061; 80076; 83735; 83880; 84484 ×2; 85025 ×2; 85610; 90670; 93005; 93306; 94760 ×3; 99285; G0009; G0378 ×2; J1650 ×2

== ENCOUNTER 2018-10-13 16:33 | Emergency (ER) | payer OTHER ==
--- OUTSIDE RECORDS SUMMARY | 2018-10-13 16:35 | XMS REPORT | Clinical Summary ---
:1930 Author Organization [facility] Address [address] [place] [address] Care Team Providers Name Role Phone Asked, [...] Due Date Last Done Comments SHINGLES VACCINES (#1) 1979 65+ PNEUMOCOCCAL VACCINE (1 of 2 - PCV13) 1994 PNEUMOCOCCAL POLYSACCHARIDE VACCINE AGE 65 AND OVER 1994 INFLUENZA VACCINE 01/23/2019 Implants Implanted Type Area [employer] Device Identifier Shelf Expiration Model / Serial Date / Lot Pacemaker Pacemaker Results Not on fileafter 10/12/2017 Insurance Payer Benefit Plan / Group Subscriber ID Type Phone Address [employer] [facility] xxxxxxxxx HMO Advance Directives Patient has advance care planning documents, and code status on file. For more information, please contact:[place] [address] Code Status Date Activated Date Inactivated Comments Full Code 03/31/2016 9:25 PM 04/01/2016 2:27 PM Code Status decision reached by: Patient
[2018-10-13] MEDS ORDERED: ONDANSETRON 4 MG (ODT) TAB ONE (17:33)
[2018-10-13] MEDS ORDERED: predniSONE 20 MG TAB ONE (17:33)
[2018-10-13] MEDS ORDERED: DIPHENHYDRAMINE 25 MG TAB/CAP ONE (17:33)
[2018-10-13] MEDS ORDERED: ACETAMINOPHEN 500 MG TAB ONE (17:33)
--- NOTE | 2018-10-13 18:02 | ER ---
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 Transition of care: patient was not received from another setting of care. Onset of symptoms was October 13, 2018. Risk Assessment: Do you want to hurt yourself or someone else? Patient reports no desire to harm self or others. Care prior to arrival: None. 16:52 Method Of Arrival: Ambulatory sv 16:52 Acuity: MARY 3 sv Historical: - Allergies: 16:54 Ibuprofen; sv - Immunization history:: Adult Immunizations. - Social history:: Smoking status: Patient/guardian denies using tobacco. - Ebola Screening: : No symptoms or risks identified at this time. Screenin:20 Abuse screen: Denies threats or abuse. Nutritional screening: No deficits noted. em Tuberculosis screening: No symptoms or risk factors identified. Fall Risk None identified. Assessment: 17:20 General: Appears in no apparent distress. comfortable, Behavior is calm, cooperative. em Pain: Complains of pain in dorsal aspect of right forearm Pain currently is 8 out of 10 on a pain scale. Pain began 3 hours ago. Neuro: Level of Consciousness is awake, alert, obeys commands, Oriented to person, place, time, situation. Cardiovascular: Capillary refill < 3 seconds Patient's skin is warm and dry. Respiratory: Airway is patent Respiratory effort is even, unlabored, Respiratory pattern is regular, symmetrical, Denies shortness of breath labored breathing. GI: Patient currently denies nausea, vomiting. Derm: Skin is intact, is healthy with good turgor, Skin is normal. Musculoskeletal: Capillary refill < 3 seconds, Range of motion: intact in all extremities, Swelling present in dorsal aspect of right forearm. 17:30 Reassessment: I agree with previous assessment. hb Vital Signs: 16:53 BP 151 / 93; Pulse 79; Resp 18; Temp 97.4; Pulse Ox 100% on R/A; Pain 8/10; em ED Course: 16:36 Patient arrived in ED. mr 16:36 Angelina Jones MD is Private Physician. mr 16:53 Triage completed. sv 16:53 Arm band placed on. sv 16:55 Joaquín Benedict PA is PHCP. cp 16:55 Joaquín Mendez MD is Attending Physician. cp 17:07 Michael De La Cruz LVN is Primary Nurse. em 17:20 Patient has correct armband on for positive identification. Bed in low position. Call em light in reach. Side rails up X2. Adult w/ patient. 18:02 XRAY Forearm LEFT In Process Unspecified. EDMS 18:36 No provider procedures requiring assistance completed. Patient did not have IV access em during this emergency room visit. Administered Medications: 17:26 Drug: Zofran 4 mg Route: PO; em 18:42 Follow up: Response: No adverse reaction em 17:26 Drug: predniSONE 60 mg Route: PO; em 18:42 Follow up: Response: No adverse reaction em 17:26 Drug: Benadryl 25 mg Route: PO; em 18:42 Follow up: Response: No adverse reaction; Marked relief of symptoms em 17:27 Drug: Tylenol 1000 mg Route: PO; em 18:43 Follow up: Response: No adverse reaction em Outcome: 18:01 Discharge ordered by MD. cp 18:43 Discharged to home ambulatory, with family. em 18:43 Condition: good 18:43 Discharge instructions given to patient, family, Instructed on discharge instructions, follow up and referral plans. medication usage, Demonstrated understanding of instructions, follow-up care, medications, Prescriptions given X 1. 18:43 Patient left the ED. em Signatures: Dispatcher [employer] EDMS Nicky Beverly RN RN sv Erna Dorman mr Michael De La Cruz LVN LVN em Joaquín Benedict PA PA cp Baxter, Heather, RN RN Corrections: (The following items were deleted from the chart) 17:07 16:53 BP 151 / 93; Pulse 79bpm; Resp 95bpm; Pulse Ox 100% RA; Temp 97.4F; Pain 8/10; sv em
--- NOTE | 2018-10-13 18:02 | EDPHYS ---
Physician Documentation [facility] Name: Huy Anaya Age: 88 yrs Sex: Male : 1930 Arrival Date: 10/13/2018 Time: 16:36 Bed 18 Private MD: Angelina Jones K ED Physician Joaquín Mendez HPI: 10/13 17:15 This 88 yrs old Male presents to ER via Ambulatory with complaints of Insect cp Bite. 17:15 The patient or guardian complains of pain, that is acute, swelling, tenderness. The cp complaints affect the lateral aspect of proximal right forearm. 17:15 Context: The problem was sustained at home, daughter reports patient was crawling cp underneath home when he felt like an insect stung his right forearm. Onset: The symptoms/episode began/occurred just prior to arrival. Treatment prior to arrival includes: no previous treatment. Associated signs and symptoms: Pertinent positives: nausea, pain, swelling, vomiting, Pertinent negatives: decreased range of motion, fever, chest pain, shortness of breath. Severity of symptoms: in the emergency department the symptoms are unchanged. Historical: - Allergies: 16:54 Ibuprofen; sv - Immunization history:: Adult Immunizations. - Social history:: Smoking status: Patient/guardian denies using tobacco. - Ebola Screening: : No symptoms or risks identified at this time. ROS: 17:20 Constitutional: Negative for body aches, chills, fever, poor PO intake. cp 17:20 Eyes: Negative for injury, pain, redness, and discharge. cp 17:20 ENT: Negative for drainage from ear(s), ear pain, sore throat, difficulty swallowing, difficulty handling secretions. 17:20 Cardiovascular: Negative for chest pain, palpitations. 17:20 Respiratory: Negative for cough, shortness of breath, wheezing. 17:20 Abdomen/GI: Positive for nausea, vomiting, Negative for abdominal pain, diarrhea, constipation. 17:20 Back: Negative for pain at rest, pain with movement. 17:20 : Negative for urinary symptoms. 17:20 MS/extremity: Positive for pain, swelling, tenderness, of the right lateral proximal forearm, Negative for decreased range of motion, deformity. 17:20 Skin: Negative for rash. 17:20 Neuro: Negative for dizziness, headache, weakness. 17:20 All other systems are negative. Exam: 17:30 Constitutional: The patient appears in no acute distress, alert, awake, cp non-diaphoretic, non-toxic, well developed, well nourished. 17:30 Head/Face: Normocephalic, atraumatic. cp 17:30 Eyes: Periorbital structures: appear normal, Conjunctiva: normal, no exudate, no injection, Sclera: no appreciated abnormality, Lids and lashes: appear normal, bilaterally. 17:30 ENT: External ear(s): are unremarkable, Nose: is normal, Mouth: Lips: moist, Oral mucosa: pink and intact, moist, Posterior pharynx: Airway: no evidence of obstruction, patent, swelling, is not appreciated, erythema, is not appreciated. 17:30 Neck: ROM/movement: is normal, is supple, without pain, no range of motions limitations, no nuchal rigidity. 17:30 Chest/axilla: Inspection: normal, Palpation: is normal, no crepitus, no tenderness. 17:30 Cardiovascular: Rate: normal, Rhythm: regular. 17:30 Respiratory: the patient does not display signs of respiratory distress, Respirations: normal, no use of accessory muscles, no retractions, no splinting, no tachypnea, labored breathing, is not present, Breath sounds: are clear throughout, no decreased breath sounds, no stridor, no wheezing. 17:30 Abdomen/GI: Inspection: abdomen appears normal. 17:30 Musculoskeletal/extremity: Extremities: grossly normal except: noted in the lateral aspect of proximal forearm: pain, swelling, tenderness, Perfusion: the extremity is normally perfused throughout, Sensation intact. 17:30 Skin: cellulitis, is not appreciated, no rash present. Vital Signs: 16:53 BP 151 / 93; Pulse 79; Resp 18; Temp 97.4; Pulse Ox 100% on R/A; Pain 8/10; em MDM: 16:56 Patient medically screened. cp 17:25 Differential diagnosis: contusion, cellulitis, localized allergic reaction. cp 18:00 Data reviewed: vital signs, nurses notes, radiologic studies, plain films. cp 18:00 Test interpretation: by ED physician or midlevel provider: plain radiologic studies. cp Counseling: I had a detailed discussion with the patient and/or guardian regarding: the historical points, exam findings, and any diagnostic results supporting the discharge/admit diagnosis, radiology results, to return to the emergency department if symptoms worsen or persist or if there are any questions or concerns that arise at home. Response to treatment: the patient's symptoms have markedly improved after treatment, and as a result, I will discharge patient. ED course: VSS. Pain and swelling improved. Will discharge to home for continued monitoring. 10/13 17:36 Order name: XRAY Forearm LEFT; Complete Time: 18:20 cp 10/13 18:22 Interpretation: Report reviewed. cp Administered Medications: 17:26 Drug: Zofran 4 mg Route: PO; em 18:42 Follow up: Response: No adverse reaction em 17:26 Drug: predniSONE 60 mg Route: PO; em 18:42 Follow up: Response: No adverse reaction em 17:26 Drug: Benadryl 25 mg Route: PO; em 18:42 Follow up: Response: No adverse reaction; Marked relief of symptoms em 17:27 Drug: Tylenol 1000 mg Route: PO; em 18:43 Follow up: Response: No adverse reaction em Disposition: 10/14 07:53 Co-signature as Attending Physician, Joaquín Mendez MD I agree with the assessment and bridget plan of care. Disposition: 10/13/18 18:01 Discharged to Home. Impression: Right forearm swelling. - Condition is Stable. - Prescriptions for Prednisone 20 mg Oral Tablet - take 2 tablet by ORAL route once daily for 5 days; 10 tablet. - Medication Reconciliation Form, Thank You Letter, Antibiotic Education, Prescription Opioid Use form. - Follow up: Private Physician; When: 1 - 2 days; Reason: Worsening of condition. - Problem is new. - Symptoms have improved. - Notes: apply ice to area Signatures: Dispatcher [employer] Nicky Bliss RN RN sv Anderson, Corey, MD MD cha Munoz, Edgar, [employer] FINISHER [employer] FINISHER em Joaquín Benedict PA PA cp Corrections: (The following items were deleted from the chart) 10/13 18:43 18:01 10/13/2018 18:01 Discharged to Home. Impression: Right forearm swelling. em Condition is Stable. Forms are Medication Reconciliation Form, Thank You Letter, Antibiotic Education, Prescription Opioid Use. Follow up: Private Physician; When: 1 - 2 days; Reason: Worsening of condition. Problem is new. Symptoms have improved. cp
--- NOTE | 2018-10-13 18:12 | RAD REPORT ---
EXAM DESCRIPTION: RAD - Forearm Left - 10/13/2018 6:02 pm CLINICAL HISTORY: Left forearm pain FINDINGS: No fracture is seen. No bony destructive lesion noted. Vascular calcifications
[2018-10-13 18:50] VITALS: BP 151/93; TEMP 97.4; O2SAT 100
== END 2018-10-13 18:43 | disposition home or self-care (01) ==
LOC: ER 16:33
DX: M79.89 Other specified soft tissue disorders (principal)
CPT/HCPCS: 99283; J7512

== ENCOUNTER 2018-12-15 16:39 | Emergency (ER) | payer OTHER ==
--- OUTSIDE RECORDS SUMMARY | 2018-12-15 16:41 | XMS REPORT | Clinical Summary ---
:1930 Author Organization [facility] Address [address] [place] [address] Care Team Providers Name Role Phone Asked, [...] VACCINE (1 of 2 - PCV13) 1994 INFLUENZA VACCINE 01/23/2019 Implants Implanted Type Area Landscape Horticulture Instructor Device Identifier Shelf Expiration Model / Serial Date / Lot Pacemaker Pacemaker Results Not on fileafter 12/14/2017 Advance Directives Patient has advance care planning documents, and code status on file. For more information, please contact:Jay Cuellar[address] [place] [address] Code Status Date Activated Date Inactivated Comments Full Code 03/31/2016 9:25 PM 04/01/2016 2:27 PM Code Status decision reached by: Patient
[2018-12-15] MEDS ORDERED: NA CHLORIDE 0.9% 500 ML ONE (17:43)
[2018-12-15] MEDS ORDERED: DIPHENHYDRAMINE 50 MG/ML VIAL ONE (17:43)
[2018-12-15] MEDS ORDERED: FAMOTIDINE 20 MG/2 ML VIAL IV ONE (17:44)
[2018-12-15 18:05] LABS: Protime INR 1.92
[2018-12-15 18:13] LABS: Absolute Lymphocytes (CBC) 1.6 K/uL (0.7-4.9); Basophils % 0.4 % (0-1.3); Eosinophils % 2.1 % (0-4.4); Hematocrit 41.1 % (39.6-49.0); Lymphocytes % 24.6 % (15.3-44.8); MPV 9.6 fL (7.6-11.3); Monocytes % 9.6 % (3.3-12.3); Potassium 3.7 mmol/L (3.5-5.1); RBC Red Blood Cell Count 4.68 M/uL (4.33-5.43)
--- NOTE | 2018-12-15 19:55 | ER ---
Nurse's Notes [facility] Name: Huy Anaya Age: 88 yrs Sex: Male : 1930 Arrival Date: 12/15/2018 Time: 16:41 Bed 18 Private MD: Diagnosis: Sialoadenitis-left Presentation: 12/15 16:42 Presenting complaint: Patient states: swelling to left cheek/jaw that began today. Pt aa5 states "I put some cream and I noticed the swelling and I went to wash my face to take the cream off and the swelling came down a little bit". Pt denies recent illness, denies feeling ill. Pt also c/o left ear pain. Transition of care: patient was not received from another setting of care. Onset of symptoms was December 15, 2018. Risk Assessment: Do you want to hurt yourself or someone else? Patient reports no desire to harm self or others. Initial Sepsis Screen: Does the patient meet any 2 criteria? No. Patient's initial sepsis screen is negative. Does the patient have a suspected source of infection? No. Patient's initial sepsis screen is negative. Care prior to arrival: None. 16:42 Method Of Arrival: Ambulatory aa5 16:42 Acuity: MARY 4 aa5 Historical: - Allergies: 16:49 Ibuprofen; aa5 16:49 Iodine; aa5 - PMHx: 16:49 Anxiety; Depression; enlarged prostate; GERD; Hypertension; Myocardial infarction; aa5 - PSHx: 16:49 Heart Surgery; pacemaker; aa5 - Immunization history:: Adult Immunizations unknown. - Social history:: Smoking status: Patient/guardian denies using tobacco. - Ebola Screening: : No symptoms or risks identified at this time. Screenin:15 Abuse screen: Denies threats or abuse. Nutritional screening: No deficits noted. em Tuberculosis screening: No symptoms or risk factors identified. Fall Risk None identified. Assessment: 17:10 General: Appears in no apparent distress. comfortable, Behavior is calm, cooperative, em Denies fever. Pain: Complains of pain in left cheek Pain currently is 0 out of 10 on a pain scale. Neuro: Neuro: Level of Consciousness is awake, alert, obeys commands, Oriented to person, place, time, situation. Cardiovascular: Capillary refill < 3 seconds Patient's skin is warm and dry. Respiratory: Airway is patent Respiratory effort is even, unlabored, Respiratory pattern is regular, symmetrical. Derm: Skin is intact, is healthy with good turgor, Skin is pink, warm \\T\\ dry. Musculoskeletal: Swelling present in left cheek. 18:15 Reassessment: Patient appears in no apparent distress at this time. wheeled to CT via em wheelchair. 19:15 Reassessment: Patient appears in no apparent distress at this time. Patient and/or cc3 family updated on plan of care and expected duration. Pain level reassessed. Patient is alert, oriented x 3, equal unlabored respirations, skin warm/dry/pink. Received this male patient from morning shift [facility] as a case of left facial swelling, with IV cannula gauge 22 at the left ACV saline locked, awaiting for CT scan result. Patient denies pain at this time. 20:20 Reassessment: Patient appears in no apparent distress at this time. Patient and/or cc3 family updated on plan of care and expected duration. Pain level reassessed. Patient is alert, oriented x 3, equal unlabored respirations, skin warm/dry/pink. PA Page discharged the patient home with prescription given. IV cannula removed and patient left ER vitally stable and ambulatory with his [id number]-up-cok. Patient denies pain at this time. Patient states feeling better. Patient states symptoms have improved. Vital Signs: 16:49 BP 143 / 85; Pulse 86; Resp 16 S; Temp 98.3(TE); Pulse Ox 96% on R/A; Weight 86.18 kg aa5 (R); Height 5 ft. 3 in. (160.02 cm) (R); 17:59 BP 132 / 85; Pulse 70; Resp 18; Pulse Ox 97% on R/A; Pain 0/10; em 19:15 BP 136 / 77; Pulse 70; Resp 18 S; Temp 98.5(O); Pulse Ox 96% on R/A; Pain 0/10; cc3 20:16 BP 135 / 73; Pulse 73; Resp 18 S; Pulse Ox 96% on R/A; Pain 0/10; cc3 16:49 Body Mass Index 33.66 (86.18 kg, 160.02 cm) aa5 ED Course: 16:41 Patient arrived in ED. aa5 16:47 Triage completed. aa5 16:48 Arm band placed on. aa5 16:54 Michael De La Cruz LVN is Primary Nurse. em 16:56 Joaquín Benedict PA is PHCP. cp 16:56 Joaquín Mendez MD is Attending Physician. cp 17:15 Patient has correct armband on for positive identification. Bed in low position. Call em light in reach. Adult w/ patient. Pulse ox on. NIBP on. 17:40 Initial lab(s) drawn, by me, sent to lab. Inserted saline lock: 22 gauge in left em antecubital area, using aseptic technique. Blood collected. 17:59 Radiology exam delayed due to lab results not completed at this time. (BUN/Creatinine). kw1 18:27 CT completed. Patient tolerated procedure well. Patient moved back from CT. kw1 18:36 Soft Tissue Neck Wo Contr In Process Unspecified. EDMS 19:54 Nicky Ruiz MD is Referral Physician. cp 20:20 No provider procedures requiring assistance completed. IV discontinued, intact, cc3 bleeding controlled, No redness/swelling at site. Pressure dressing applied. Administered Medications: 17:43 Drug: NS 0.9% 500 ml Route: IV; Rate: 500 ml/hr; Site: left antecubital; em 18:30 Follow up: IV Status: Completed infusion; IV Intake: 500ml em 17:47 Drug: Benadryl 25 mg Route: IVP; Site: left antecubital; iw 18:30 Follow up: Response: No adverse reaction em 17:47 Drug: Pepcid 20 mg Route: IVP; Site: left antecubital; iw 18:30 Follow up: Response: No adverse reaction em 20:00 Drug: Augmentin 875 mg Route: PO; cc3 20:20 Follow up: Response: No adverse reaction cc3 20:05 Drug: Rocephin 1 grams Route: IV; Rate: bolus; Site: left antecubital; cc3 20:20 Follow up: Response: No adverse reaction; IV Status: Completed infusion; IV Intake: [id number] Intake: 18:30 IV: 500ml; Total: 500ml. em 20:20 IV: 10ml; Total: 510ml. cc3 Outcome: 19:55 Discharge ordered by . cp 20:20 Discharged to home ambulatory, with family. cc3 20:20 Condition: stable 20:20 Discharge instructions given to patient, family, Instructed on discharge instructions, follow up and referral plans. medication usage, Demonstrated understanding of instructions, follow-up care, medications, Prescriptions given X 1. 20:22 Patient left the ED. cc3 Signatures: Dispatcher [employer] EDMichael Booth, SPORTS MANAGER SPORTS MANAGER Wendy Ro RN RN iw Calderon, Audri, RN RN aa5 Joaquín Benedict PA PA cp Wilhelm, Kimberly kw1 Cordel, Charlene cc3 Corrections: (The following items were deleted from the chart) 16:50 16:42 Presenting complaint: Patient states: swelling to left cheek/jaw that began aa5 today. Pt states "I put some cream and I noticed the swelling and I went to wash my face to take the cream off and the swelling came down a little bit". Pt denies recent illness, denies feeling ill. aa5 21:11 19:15 BP 136 / 77; Pulse 70bpm; Resp 18bpm; Spontaneous; Pulse Ox 96% RA; Temp 98.5F cc3 Oral; cc3
--- NOTE | 2018-12-15 19:55 | EDPHYS ---
Physician Documentation [facility] Name: Huy Anaya Age: 88 yrs Sex: Male : 1930 Arrival Date: 12/15/2018 Time: 16:41 Bed 18 Private MD: ED Physician Joaquín Mendez HPI: 12/15 17:30 This 88 yrs old Male presents to ER via Ambulatory with complaints of Facial cp Swelling. Historical: - Allergies: 16:49 Ibuprofen; aa5 16:49 Iodine; aa5 - PMHx: 16:49 Anxiety; Depression; enlarged prostate; GERD; Hypertension; Myocardial infarction; aa5 - PSHx: 16:49 Heart Surgery; pacemaker; aa5 - Immunization history:: Adult Immunizations unknown. - Social history:: Smoking status: Patient/guardian denies using tobacco. - Ebola Screening: : No symptoms or risks identified at this time. ROS: 17:35 Constitutional: Negative for body aches, chills, fever, poor PO intake. cp 17:35 Eyes: Negative for injury, pain, redness, and discharge. cp 17:35 ENT: Negative for drainage from ear(s), ear pain, sore throat, difficulty swallowing, difficulty handling secretions. 17:35 Cardiovascular: Negative for chest pain, edema, palpitations. 17:35 Respiratory: Negative for cough, shortness of breath, wheezing. 17:35 Abdomen/GI: Negative for abdominal pain, nausea, vomiting, and diarrhea. 17:35 Skin: Positive for swelling, of the left mandible. 17:35 Neuro: Negative for headache, weakness. 17:35 All other systems are negative. Exam: 17:45 Constitutional: The patient appears in no acute distress, alert, awake, cp non-diaphoretic, non-toxic, well developed, well nourished. 17:45 Head/face: Noted is swelling, that is moderate, of the left parotid gland, tenderness, cp that is mild. 17:45 Eyes: Periorbital structures: appear normal, Conjunctiva: normal, no exudate, no injection, Sclera: no appreciated abnormality, Lids and lashes: appear normal, bilaterally. 17:45 ENT: External ear(s): are unremarkable, Ear canal(s): are normal, clear, TM's: bulging, is not appreciated, bilaterally, dullness, bilaterally, erythema, is not appreciated, bilaterally, Nose: is normal, Mouth: Lips: moist, Oral mucosa: pink and intact, moist, Posterior pharynx: is normal, airway is patent, no erythema, no exudate. 17:45 Neck: ROM/movement: is normal, is supple, without pain, no range of motions limitations, no meningismus, no nuchal rigidity, Lymph nodes: no appreciated lymphadenopathy. 17:45 Chest/axilla: Inspection: normal, Palpation: is normal, no crepitus, no tenderness. 17:45 Cardiovascular: Rate: normal, Rhythm: regular. 17:45 Respiratory: the patient does not display signs of respiratory distress, Respirations: normal, no use of accessory muscles, no retractions, no splinting, no tachypnea, labored breathing, is not present, Breath sounds: are clear throughout, no decreased breath sounds, no stridor, no wheezing. 17:45 Abdomen/GI: Exam negative for discomfort, distension, guarding, Inspection: abdomen appears normal. 17:45 Skin: cellulitis, is not appreciated, no rash present. Vital Signs: 16:49 BP 143 / 85; Pulse 86; Resp 16 S; Temp 98.3(TE); Pulse Ox 96% on R/A; Weight 86.18 kg aa5 (R); Height 5 ft. 3 in. (160.02 cm) (R); 17:59 BP 132 / 85; Pulse 70; Resp 18; Pulse Ox 97% on R/A; Pain 0/10; em 19:15 BP 136 / 77; Pulse 70; Resp 18 S; Temp 98.5(O); Pulse Ox 96% on R/A; Pain 0/10; cc3 20:16 BP 135 / 73; Pulse 73; Resp 18 S; Pulse Ox 96% on R/A; Pain 0/10; cc3 16:49 Body Mass Index 33.66 (86.18 kg, 160.02 cm) aa5 MDM: 16:56 Patient medically screened. bridget 18:00 Differential diagnosis: cellulitis, abscess. cp 19:55 Data reviewed: vital signs, nurses notes, lab test result(s), radiologic studies, CT cp scan, and as a result, I will discharge patient. 19:55 Counseling: I had a detailed discussion with the patient and/or guardian regarding: the cp historical points, exam findings, and any diagnostic results supporting the discharge/admit diagnosis, lab results, radiology results, to return to the emergency department if symptoms worsen or persist or if there are any questions or concerns that arise at home. 12/15 17:56 Order name: Basic Metabolic Panel; Complete Time: 18:55 EDMS 12/15 18:55 Interpretation: Normal except: BUN 22; CRE 1.90; GFR 34; CA 7.9. 12/15 17:56 Order name: CBC with Automated Diff; Complete Time: 18:55 EDMS 12/15 17:57 Order name: Protime (+INR); Complete Time: 18:55 EDMS 12/15 17:23 Order name: IV; Complete Time: 17:43 12/15 18:12 Order name: Soft Tissue Neck Wo Contr EDMS Administered Medications: 17:43 Drug: NS 0.9% 500 ml Route: IV; Rate: 500 ml/hr; Site: left antecubital; em 18:30 Follow up: IV Status: Completed infusion; IV Intake: 500ml em 17:47 Drug: Benadryl 25 mg Route: IVP; Site: left antecubital; iw 18:30 Follow up: Response: No adverse reaction em 17:47 Drug: Pepcid 20 mg Route: IVP; Site: left antecubital; iw 18:30 Follow up: Response: No adverse reaction em 20:00 Drug: Augmentin 875 mg Route: PO; cc3 20:20 Follow up: Response: No adverse reaction cc3 20:05 Drug: Rocephin 1 grams Route: IV; Rate: bolus; Site: left antecubital; cc3 20:20 Follow up: Response: No adverse reaction; IV Status: Completed infusion; IV Intake: [id number] Disposition: 20:30 Chart complete. 12/16 09:59 Co-signature as Attending Physician, Joaquín Mendez MD I agree with the assessment and bridget plan of care. Disposition: 12/15/18 19:55 Discharged to Home. Impression: Sialoadenitis - left. - Condition is Stable. - Discharge Instructions: Parotitis. - Prescriptions for Augmentin 875- 125 mg Oral Tablet - take 1 tablet by ORAL route every 12 hours for 10 days; 20 tablet. - Medication Reconciliation Form, Thank You Letter, Antibiotic Education, Prescription Opioid Use form. - Follow up: Nicky Ruiz MD; When: 2 - 3 days; Reason: Recheck today's complaints. - Problem is new. - Symptoms have improved. Signatures: Dispatcher [employer] EDJoaquín Cline MD MD cha Munoz, Michael, DIRECTOR OF SPECIAL SERVICES DIRECTOR OF SPECIAL SERVICES em Wendy Sanders RN RN iw Kayce Chiu RN RN aa5 Joaquín Benedict, PA PA cp Angeline Joshi cc3 Corrections: (The following items were deleted from the chart) 12/15 18:12 17:54 Soft Tissue Neck W/Contr+CT.RAD.BRZ ordered. EDMS EDMS 18:16 17:54 PROTIME (+INR)+COAG.LAB.BRZ ordered. EDMS EDMS 18:17 17:54 CBC+H.LAB.BRZ ordered. EDMS EDMS 18:45 17:54 BASIC METABOLIC PANEL+C.LAB.BRZ ordered. EDMS EDMS 18:55 18:55 Normal except: BUN 22; CRE 1.90; GFR 34. cp cp 19:55 19:55 12/15/2018 19:55 Discharged to Home. Impression: Sialoadenitis. Condition is cp Stable. Forms are Medication Reconciliation Form, Thank You Letter, Antibiotic Education, Prescription Opioid Use. Follow up: Nicky Ruiz; When: 2 - 3 days; Reason: Recheck today's complaints. Problem is new. Symptoms have improved. cp 20:22 19:55 12/15/2018 19:55 Discharged to Home. Impression: Sialoadenitis - left. Condition cc3 is Stable. Forms are Medication Reconciliation Form, Thank You Letter, Antibiotic Education, Prescription Opioid Use. Follow up: Nicky Ruiz; When: 2 - 3 days; Reason: Recheck today's complaints. Problem is new. Symptoms have improved. cp
[2018-12-15] MEDS ORDERED: CEFTRIAXONE/SWI 1gm 1 GM/10 ML SYR ONE (20:20)
[2018-12-15] MEDS ORDERED: AMOX/K CLAV 875 MG TAB ONE (20:20)
[2018-12-15 21:01] VITALS: BP 136/77; TEMP 98.5; O2SAT 96
--- NOTE | 2018-12-16 11:38 | RAD REPORT ---
EXAM DESCRIPTION: CT - Soft Tissue Neck Wo Contr - 12/15/2018 6:34 pm CLINICAL HISTORY: SWELLING COMPARISON: None. TECHNIQUE: CT examination of the soft tissue neck is performed on a multi-detector scanner without i ntravenous contrast administration. Sagittal and coronal formations are obtained. The reported DLP in mGy*cm is 416. Automatic exposure control (AEC), mA and/or kV adjustment by patient size, and/or ite rative reconstructive technique was used, per departmental dose optimization program, during the perf ormance of the CT examination. FINDINGS: The paranasal sinuses demonstrate no abnormalities. Normal appearance of the mastoid air c ells are noted. Normal appearance of the globe and retrobulbar regions of the orbits are noted. Soft tissues of the f hai appears unremarkable without any swelling. The parotid glands are slightly prominent bilaterally without any evidence of surrounding inflammator y changes or stranding. A small calcification is seen in the right parotid gland. The submandibular s aliva glands appear normal. Normal appearance of the vocal cords, subglottic trachea and epiglottis are noted. There is no evidence of cervical lymphadenopathy. Normal appearance of the carotid and jugular vessel s are noted. Calcifications are seen in the carotid bulbs bilaterally The prevertebral soft tissues a re normal.. 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 IMPRESSION: Mild fullness of the parotid glands bilaterally raising the possibility of mild bilatera l sialadenitis. Clinical correlation is recommended. Electronically signed by: Brittani eG MD 12/15/2018 7:01 PM CDT Due to temporary technical issues with the PACS/Fluency reporting system, reports are being signed by the in house radiologist as a courtesy to ensure prompt reporting. The interpreting radiologist is f ully responsible for the content of the report.
== END 2018-12-15 20:22 | disposition home or self-care (01) ==
LOC: ER 16:39
DX: K11.20 Sialoadenitis, unspecified (principal); I10 Essential (primary) hypertension; Z88.6 Allergy status to analgesic agent; Z95.0 Presence of cardiac pacemaker; Z91.048 Other nonmedicinal substance allergy status
CPT/HCPCS: 85025; 80048; 36415; 85610; 70490; J0696; 96361; 96374; 96375; 99284

== ENCOUNTER 2019-02-28 17:30 | Emergency (ER) | payer OTHER ==
--- OUTSIDE RECORDS SUMMARY | 2019-02-28 17:33 | XMS REPORT | Clinical Summary ---
:1930 Author Organization [facility] Address [address] [place] [address] Care Team Providers Name Role Phone Asked, [...] INFLUENZA VACCINE 01/23/2019 Implants Implanted Type Area Tag Writer Device Identifier Shelf Expiration Model / Serial Date / Lot Pacemaker Pacemaker Results Not on fileafter 02/27/2018 Advance Directives For more information, please contact: [phone] Type Date Recorded Patient Health Program Director Explanation Advance Directives, 03/08/2015 11:53 AM Mar 08 2015 Living Will and 16:53:12:195 GMT Medical Power of Front Attendant Code Status Date Activated Date Inactivated Comments Full Code 03/31/2016 9:25 PM 04/01/2016 2:27 PM Code Status decision reached by: Patient
[2019-02-28] MEDS ORDERED: NA CHLORIDE 0.9% 1,000 ML ONE (21:06)
--- NOTE | 2019-02-28 22:23 | ER ---
Nurse's Notes [facility] Name: Huy Anaya Age: 88 yrs Sex: Male : 1930 Arrival Date: 02/28/2019 Time: 17:32 Bed 26 Private MD: Diagnosis: Presentation: 02/28 18:03 Presenting complaint: Child states: "I think he's dehydrating because he was working in [facility] [place] 2 days ago and now he doesn't have any energy and his knees hurt really bad. He had a steroid injection, but he's having a hard time walking". Transition of care: patient was not received from another setting of care. Onset of symptoms was February 2019. Risk Assessment: Do you want to hurt yourself or someone else? Patient reports no desire to harm self or others. Initial Sepsis Screen: Does the patient meet any 2 criteria? No. Patient's initial sepsis screen is negative. Does the patient have a suspected source of infection? No. Patient's initial sepsis screen is negative. Care prior to arrival: None. 18:03 Method Of Arrival: Ambulatory [facility] 18:03 Acuity: MARY 3 aj1 Triage Assessment: 18:05 General: Appears in no apparent distress. comfortable, Behavior is calm, cooperative, aj1 appropriate for age. Pain: Complains of pain in right knee and left knee Pain currently is 9 out of 10 on a pain scale. Neuro: Level of Consciousness is awake, alert, obeys commands. Cardiovascular: Patient's skin is warm and dry. Respiratory: Airway is patent Respiratory effort is even, unlabored, Respiratory pattern is regular, symmetrical. Historical: - Allergies: 18:05 Ibuprofen; aj1 18:05 Iodine; aj1 - PMHx: 18:05 Anxiety; Depression; enlarged prostate; GERD; Hypertension; Myocardial infarction; aj1 - Ebola Screening: : Patient denies travel to an Ebola-affected area in the 21 days before illness onset. Screenin:50 Abuse screen: Denies threats or abuse. Nutritional screening: No deficits noted. tr5 Tuberculosis screening: No symptoms or risk factors identified. Fall Risk None identified. Assessment: 22:00 Reassessment: Pt not in room. Pt is not seen in ER. tr5 Vital Signs: 18:05 BP 143 / 77; Pulse 74; Resp 18; Temp 98.2; Pulse Ox 96% on R/A; Weight 83.91 kg (R); aj Height 5 ft. 3 in. (160.02 cm) (R); 18:05 Body Mass Index 32.77 (83.91 kg, 160.02 cm) [facility] ED Course: 17:32 Patient arrived in ED. as 18:04 Triage completed. aj1 18:05 Arm band placed on Patient placed in waiting room, Patient notified of wait time. aj1 20:21 Eloy Schuster MD is Attending Physician. 20:49 Les Palencia, RN is Primary Nurse. tr5 20:50 Bed in low position. Call light in reach. Side rails up X 1. tr5 21:52 No provider procedures requiring assistance completed. Patient did not have IV access tr5 during this emergency room visit. Administered Medications: No medications were administered Outcome: 21:52 Eloped from patient exam room, before seeing physician Time discovered patient gone: tr5 February 28, 2019 at 21:20 22:05 Patient left the ED. tr5 Signatures: Josefina Birmingham, RN RN aj Rosalinda Arguello as Eloy Schuster MD MD Les Palencia, LOPEZ RN tr5 Corrections: (The following items were deleted from the chart) 21:52 21:00 Patient moved to [place] tr5 tr5
[2019-03-01 00:32] VITALS: BP 143/77; TEMP 98.2; O2SAT 96
== END 2019-02-28 22:05 | disposition left against medical advice (07) ==
LOC: ER 17:30
DX: Z02.9 Encounter for administrative examinations, unspecified (principal)
CPT/HCPCS: 99281; J7030